=== PATIENT | female | born 1960 | race African-American/Black ===

== ENCOUNTER → 2022-12-15 09:16 | Outpatient (BNVA) | payer OTHER, MEDICAID, SELFPAY | PROVIDERS: PCP Internal Medicine; Visit Provider Physician Assistant Surgical ==

== ENCOUNTER → 2023-01-06 09:55 | Outpatient (BNVA) | payer OTHER, MEDICAID, SELFPAY | PROVIDERS: PCP Internal Medicine; Visit Provider Physician Assistant Surgical ==

== ENCOUNTER 2023-01-10 08:11 | Outpatient (REF) | payer OTHER, MEDICAID, SELFPAY ==
--- NOTE | ~2023-01-10 | XR_ITS ---
EXAMINATION: XR CHEST CLINICAL INFORMATION: Obesity COMPARISON: None available. TECHNIQUE: 2 views of the chest were obtained. FINDINGS: No significant abnormality is noted involving the heart, lungs, mediastinum, bony thorax or soft tissues. Mild degenerative changes of the spine. XR/XR chest 2V IMPRESSION: Unremarkable examination.
--- NOTE | 2023-01-10 08:42 | ECG_ITS ---
Test Reason : e66.9 Blood Pressure : / mmHG Vent. Rate : 067 BPM Atrial Rate : 067 BPM P-R Int : 142 ms QRS Dur : 086 ms QT Int : 416 ms P-R-T Axes : 040 -03 020 degrees QTc Int : 439 ms Normal sinus rhythm Normal ECG No previous ECGs available Referred By: Lauren Jay Electronically Signed By:JAK MONAE
[2023-01-10 08:43] LABS: MANUAL DIFF FLAG NO
[2023-01-10 09:04] LABS: Basophils Percent Auto 0.6 % (0-2); Eosinophils Absolute Auto 0.2 X10*3/uL (0.0-0.4); Eosinophils Percent Auto 2.8 % (0-4); Hematocrit 38.3 % (37.0-47.0); Hemoglobin 12.7 g/dl (12.0-16.0); Imm Gran Abs Auto 0.02 X10*3/uL (0.00-0.03); Imm Gran Pct Auto 0.3 % (0.0-0.4); Lymphocytes Absolute Auto 1.7 X10*3/uL (1.2-4.9); Lymphocytes Percent Auto 23.3 % (20-40); Mean Corpuscular HGB Conc 33.2 g/dl (31.0-35.0); Mean Corpuscular Hemoglobin 27.4 pg (27.0-33.0); Mean Corpuscular Volume 82.5 fL (80.0-98.0); Mean Platelet Volume 9.7 fL (9.4-12.3); Monocytes Absolute Auto 0.4 X10*3/uL (0.1-1.2); Neutrophils Absolute Auto 4.8 x10*3/uL (2.0-8.3); Platelet Count 305 X10*3/uL (160-400); Red Blood Count 4.64 X10*6/uL (4.20-5.50); White Blood Count 7.1 X10*3/uL (4.8-10.8)
[2023-01-10 09:31] LABS: Estimated Average Glucose 134 mg/dL; Hemoglobin A1c % 6.3 %
[2023-01-10 09:43] LABS: Alanine Aminotransferase 25 U/L (0-31); Albumin Level 4.4 g/dL (3.5-5.0); Alkaline Phosphatase 104 U/L (39-117); Anion Gap 13 (12-20); Aspartate Amino Transferase 30 U/L (5-31); Bilirubin Total 1.5 mg/dL (0.0-1.0); Blood Urea Nitrogen 9 mg/dL (9-16); C Reactive Protein 1.26 mg/dL (< or = 0.50); Calcium 9.9 mg/dL (8.4-10.2); Carbon Dioxide 24 mmol/L (22-29); Chloride 107 mmol/L (96-108); Cholesterol 181 mg/dL; Estimated Glomerular Filt Rate > 60; Glucose Random 116 mg/dL (60-115); HDL Cholesterol 50 mg/dL; Iron 77 mcg/dL (30-160); LDL Cholesterol Calculated 119 mg/dl; Percent Iron Saturation 28 % (15-50); Potassium 3.7 mmol/L (3.3-5.1); Sodium 140 mmol/L (135-145); Total Iron Binding Capacity 279 mcg/dL (228-428); Total Protein 8.3 g/dL (6.5-8.0); Triglycerides 63 mg/dL; Unsaturated Iron Binding 202 ug/dL
[2023-01-10 10:05] LABS: Ferritin 120 ng/mL (10-250); Insulin 14 uU/mL (2-29); TSH reflex Free T4 2.51 uIU/mL (0.32-4.0); Vitamin D 25-OH Total 36.8 ng/mL (>30)
[2023-01-10 10:10] LABS: Folate 16.6 ng/mL (> or = 4.0); Vitamin B12 477 pg/mL (200-900)
[2023-01-12 13:19] LABS: Calcium (PTHI) 9.2 mg/dL (8.6-10.4); PTHI 36 pg/mL (16-77)
[2023-01-15 02:49] LABS: Zinc 79 mcg/dL (60-130)
[2023-01-17 21:24] LABS: Vitamin A 38 mcg/dL (38-98)
[2023-01-18 11:04] LABS: Vitamin B1 8 nmol/L (8-30)
== END 2023-01-10 08:12 | disposition home or self-care (01) ==
LOC: HO.LAB 08:11
PROVIDERS: PCP Internal Medicine; Visit Provider Physician Assistant Surgical
DX: E66.9 Obesity, unspecified (principal); E63.9 Nutritional deficiency, unspecified
CPT/HCPCS: 36415; 71046; 80053; 80061; 82306; 82607; 82728; 82746; 83036; 83525; 83540; 83970; 84425; 84443; 84590; 84630; 85025; 86140; 93005

== ENCOUNTER → 2023-01-26 08:50 | Outpatient (BNVA) | payer OTHER, MEDICAID, SELFPAY | PROVIDERS: PCP Internal Medicine; Visit Provider Dietitian, Registered | DX: E66.9 Obesity, unspecified (principal); E11.9 Type 2 diabetes mellitus without complications; Z71.3 Dietary counseling and surveillance | CPT/HCPCS: 97802 ==

== ENCOUNTER 2023-02-06 07:57 | Outpatient (AMB) | payer OTHER, SELFPAY ==
--- NOTE | 2023-02-06 08:42 | MHC.WMTHER ---
Intake Intake Visit Reasons: (OV) BH Intake Allergies clindamycin Allergy (Mild, Verified 01/26/23 09:55) Hives Latex, Natural Rubber Allergy (Mild, Verified 01/26/23 09:55) Hives methadone Allergy (Mild, Verified 01/26/23 09:55) Hives Opioids - Morphine Analogues Allergy (Mild, Verified 01/26/23 09:55) Hives PFSH Surgical History Hx of section Family History Mother Diabetes Father Diabetes Heart attack Son No problems noted. Son No problems noted. Social History Alcohol intake: never Patient Tobacco Use Status: Former Tobacco user Behavioral Health Assessment Weight Management Therapy Therapy Notes Details Pt is looking to have weight loss surgery to help improve her health and quality of life, improve her diabetes as well. She stated that at age 32, she fell off the ladder at work which changed her whole life. Pt stated that she never worked another day after that. She denied ever being in therapy or serious mental health issues. Pt did report some OCD . Presenting Concerns Referral Source provider Reason for referral weight loss surgery evaluation Precipitating Event obesity Living Situation Current Living Situation Rent Satisfied with current living situation? Yes Comments Pt lives together with her adult son. Food/Weight/Diet Expectations of change weight loss and maintenance History/Relationship with food Pt stated that she loves to eat and loves to cook. Employment Meaningful activities walking, building legos, watching nature Assessment & Plan Assessment & Plan (1) Adjustment disorder, unspecified: Code(s): F43.20 - Adjustment disorder, unspecified (2) Obesity: Code(s): E66.9 - Obesity, unspecified Plan Patient will be seen again, evaluation was not completed. Patient was somewhat religiously preoccupied and unclear if there is some paranoia. Pt is motivated and will be seen again. Coding Level of Care Code Tyree Gan ([id number]) Diagnoses Adjustment disorder, unspecified F43.20 Obesity E66.9 Time Spent (min) 45
== END 2023-02-06 14:13 | disposition home or self-care (01) ==
PROVIDERS: PCP Internal Medicine; Visit Provider Counselor Mental Health
DX: F43.20 Adjustment disorder, unspecified (principal); E66.9 Obesity, unspecified
CPT/HCPCS: 90791

== ENCOUNTER → 2023-02-06 07:57 | Outpatient (BNVA) | payer OTHER, MEDICAID, SELFPAY | PROVIDERS: PCP Internal Medicine; Visit Provider Counselor Mental Health ==

== ENCOUNTER 2023-02-20 09:24 | Outpatient (AMB) | payer OTHER, SELFPAY ==
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
== END 2023-02-20 13:01 | disposition home or self-care (01) ==
PROVIDERS: PCP Internal Medicine; Visit Provider Counselor Mental Health
DX: F43.20 Adjustment disorder, unspecified (principal); E66.9 Obesity, unspecified
CPT/HCPCS: 90837

== ENCOUNTER → 2023-02-20 09:24 | Outpatient (BNVA) | payer OTHER, MEDICAID, SELFPAY | PROVIDERS: PCP Internal Medicine; Visit Provider Counselor Mental Health ==

== ENCOUNTER 2023-02-28 10:54 | Outpatient (AMB) | payer OTHER, MEDICAID, SELFPAY ==
--- NOTE | 2023-02-28 11:15 | A.OFFVIS_ITS ---
Intake VS Expanded 02/28/23 11:32 Height 5 ft Weight 177 lb 12.8 oz BMI 34.7 BP 130/63 Blood Pressure Location Rt brachial Blood Pressure Position Sitting Pulse 68 Pulse Source Pulse Oximeter Temp 97.7 F Temperature Source Temporal Artery Scan Pulse Oximetry 95 Oxygen Delivery Method Room Air Intake Visit Reasons: (OV) F/U SWL + H Pylori Allergies clindamycin Allergy (Mild, Verified 01/26/23 09:55) Hives Latex, Natural Rubber Allergy (Mild, Verified 01/26/23 09:55) Hives methadone Allergy (Mild, Verified 01/26/23 09:55) Hives Opioids - Morphine Analogues Allergy (Mild, Verified 01/26/23 09:55) Hives Medication List - Last Reconciled 02/28/23 by HANY Moreau albuterol sulfate 90 mcg/actuation 2 inhalations inhalation Q6H PRN atorvastatin 20 mg PO BEDTIME bisacodyl 5 mg PO BEDTIME flash glucose scanning reader (Stronghold TechnologyStyle Vin 2 [place]) As directed flash glucose sensor (FreeStyle Vin 2 Sensor kit) As directed gabapentin (Neurontin) 300 mg PO TID ibuprofen 600 mg PO Q8H PRN insulin aspart U-100 (Novolog FlexPen U-100 Insulin aspart) 1 sliding scale dose subcut USEASDIRECTD insulin glargine (Basaglar KwikPen U-100 Insulin) 18 units subcut QPM HPI HPI Comments History of Present Illness Details The patient is a pleasant 62 year old female who returns to the clinic for pre-operative surgical weight loss management.? They were last seen in the office on 01/06/2023, recorded weight at that time was 187.4 pounds, with a BMI of 36.6.? Today's weight is 177.8 pounds and BMI is 34.7.? There has been a weight loss of 9.4 pounds since initiating the surgical weight loss program on 01/06/2023 with a total body weight loss of 5.12 %. Pre op work up completed as follows: SWL classes:? 02/28 BH appts: cleared 02/20?? RD appts: 01/26, f/u scheduled 03/07 Labs: 01/10/2023- A1C 6.3, elevated bili/CRP/total protein H. pylori: had a cough drop today so unable to perform; can perform next time CXR: 01/10/2023, unremarkable exam EK01/10/2023, NSR ABD U/S: scheduled 04/03 UGI: scheduled 04/03 Pt reports she was doing well with the plan and exercise, but recently has experienced neuropathy. Had gone down to 165lbs, but once she had increased pain gained weight back. Current meal plan includes: Premier Protein shake- 1 scoop in 8oz unsweetened almond milk each at 8am-10am and 12pm-2pm Pure Protein protein bars- HALF bar at 3pm-4pm and FULL bar at 7pm-9pm Dinner at 5pm- 5 forks of protein and 5 forks of salad/vegetables During visit with RD given option for two shakes, 1.5 pure protein bars; does not like this brand of bar anymore wakes at 5-6am, bedtime 1am does not want to use solid food anymore, wants to use just bars and shakes Current exercise plan includes: bedridden due to neuropathy; has had to take ibuprofen frequently PFSH Surgical History Hx of section Family History Mother Diabetes Father Diabetes Heart attack Son No problems noted. Son No problems noted. Social History Alcohol intake: never Patient Tobacco Use Status: Former Tobacco user Physical Exam Vital Signs: Last Vital Signs Temp 97.7 F 02/28/23 11:32 Pulse 68 02/28/23 11:32 BP 130/63 02/28/23 11:32 Pulse Ox 95 02/28/23 11:32 Oxygen Delivery Method Room Air 02/28/23 11:32 BMI result Body Mass Index 34.7 Assessment & Plan Assessment & Plan (1) Obesity: Code(s): E66.9 - Obesity, unspecified (2) High cholesterol: Code(s): E78.00 - Pure hypercholesterolemia, unspecified (3) Type 2 diabetes mellitus: Code(s): E11.9 - Type 2 diabetes mellitus without complications (4) RSD (reflex sympathetic dystrophy): Code(s): G90.50 - Complex regional pain syndrome I, unspecified (5) Cataract: Code(s): H26.9 - Unspecified cataract (6) Adjustment disorder, unspecified: Code(s): F43.20 - Adjustment disorder, unspecified Plan New plan: 8-10am Premier shake, 1 scoop in 8oz UAM 12-2pm ONE or Quest bar 4-6pm same shake 8-10pm bar Next visit will perform H. pylori test. We also discussed today that after surgery she should aim to stop her ibuprofen use. Encouraged her to discuss with her doctors to find another method of pain control. RTC 2-3 weeks for initial visit with Dr. Page, then next available visit with me once all her preop testing is complete. Patient is obese and is not considered stable at this time. I spent a total of 30 minutes reviewing/updating records, examining the patient and counseling the patient on weight management as detailed above. Coding Level of Care Code Est Pt Level 4 (65556) Diagnoses Obesity E66.9 High cholesterol E78.00 Type 2 diabetes mellitus E11.9 RSD (reflex sympathetic dystrophy) G90.50 Cataract H26.9 Adjustment disorder, unspecified F43.20
[2023-02-28 11:32] VITALS: BP 130/63; PULSE 68; TEMP 36.5; O2SAT 95; BMI 34.7
== END 2023-02-28 12:09 | disposition home or self-care (01) ==
PROVIDERS: PCP Internal Medicine; Visit Provider Physician Assistant Surgical
DX: E66.9 Obesity, unspecified (principal); E78.00 Pure hypercholesterolemia, unspecified; E11.9 Type 2 diabetes mellitus without complications; G90.50 Complex regional pain syndrome I, unspecified; H26.9 Unspecified cataract; F43.20 Adjustment disorder, unspecified
CPT/HCPCS: 99214

== ENCOUNTER → 2023-02-28 10:54 | Outpatient (BNVA) | payer OTHER, MEDICAID, SELFPAY | PROVIDERS: PCP Internal Medicine; Visit Provider Physician Assistant Surgical ==

== ENCOUNTER 2023-03-07 08:43 | Outpatient (AMB) | payer OTHER, MEDICAID, SELFPAY ==
--- NOTE | 2023-03-07 09:09 | A.OFFVIS_ITS ---
Intake Intake Visit Reasons: (OV) F/U SWL Inspector Weights And Measures Required: No Allergies clindamycin Allergy (Mild, Verified 01/26/23 09:55) Hives Latex, Natural Rubber Allergy (Mild, Verified 01/26/23 09:55) Hives methadone Allergy (Mild, Verified 01/26/23 09:55) Hives Opioids - Morphine Analogues Allergy (Mild, Verified 01/26/23 09:55) Hives HPI Nutrition Presentation Reason for consult elevated BMI Diet Assmnt Details 1.5 Pure protein bars and 1 shake (each 1 scoop powder with almond milk) Beets, cauliflower, tomatoes, bok ruthie, any type of greens - no protein, doesn't like meat very much Was having some low blood sugars, was able to decrease her insulin meds Pt shares she is very all or nothing - has never learned balance with nutrition or many other things. We discussed how important it is to continue to work on this. Also has a one track mind , cant focus on multiple things. Had a few bad days and wanted to quit. Patient shares her ultrasonic welding machine operator advised her to increase her carbohydrate intake. However patient feels better following a low carb diet. Patient has been trying to educate herself about the food industry, she has a lot of concerns today which we talked through. Pt shares she is very spiritual which helps her maintain positively in her life. Dietary counseling reduction Diagnosis Nutrition problem #1 overweight/obesity As related to (etiology) #1 excess energy intake and physical inactivity As evidenced by (sign/symptom) #1 high BMI Monitoring/Goals Nutrition problem monitoring total energy intake, level of knowledge/skill, total PRO intake, total CHO intake and weight Outcome progress progressing Learning/Education Readiness to learn good Stages of change action Educational materials provided Yes Most Recent Diabetes Results: Cholesterol 181 mg/dL 01/10/23 HDL Cholesterol 50 mg/dL 01/10/23 Triglycerides 63 mg/dL 01/10/23 Creatinine 0.84 mg/dL (0.5-1.4) 01/10/23 Blood Urea Nitrogen 9 mg/dL (9-16) 01/10/23 Sodium 140 mmol/L (135-145) 01/10/23 Potassium 3.7 mmol/L (3.3-5.1) 01/10/23 Chloride 107 mmol/L (96-108) 01/10/23 Carbon Dioxide 24 mmol/L (22-29) 01/10/23 Calcium 9.9 mg/dL (8.4-10.2) 01/10/23 AST 30 U/L (5-31) 01/10/23 ALT 25 U/L (0-31) 01/10/23 Total Protein 8.3 g/dL (6.5-8.0) H 01/10/23 Albumin 4.4 g/dL (3.5-5.0) 01/10/23 PFSH Surgical History Hx of section Family History Mother Diabetes Father Diabetes Heart attack Son No problems noted. Son No problems noted. Social History Alcohol intake: never Patient Tobacco Use Status: Former Tobacco user Assessment & Plan Assessment & Plan (1) Type 2 diabetes mellitus: Code(s): E11.9 - Type 2 diabetes mellitus without complications (2) Obesity (BMI 30-39.9): Code(s): E66.9 - Obesity, unspecified Patient Instructions: Patient is cleared from a nutrition standpoint for bariatric surgery. Educat ional requirements have been completed. Reviewed vitamin supplementation and commitment to protein shake for several months post surgery. Encouraged communication with office as needed Coding Level of Care Code Nutr Indiv Subseq ([id number]) Diagnoses Type 2 diabetes mellitus E11.9 Obesity (BMI 30-39.9) E66.9 Time Spent (min) 30
== END 2023-03-07 10:09 | disposition home or self-care (01) ==
PROVIDERS: PCP Internal Medicine; Visit Provider Dietitian, Registered
DX: E11.9 Type 2 diabetes mellitus without complications (principal); E66.9 Obesity, unspecified

== ENCOUNTER → 2023-03-07 08:43 | Outpatient (BNVA) | payer OTHER, MEDICAID, SELFPAY | PROVIDERS: PCP Internal Medicine; Visit Provider Dietitian, Registered | DX: E66.9 Obesity, unspecified (principal); E11.9 Type 2 diabetes mellitus without complications; Z71.3 Dietary counseling and surveillance | CPT/HCPCS: 97803 ==

== ENCOUNTER 2023-03-07 17:58 | Outpatient (REF) | payer OTHER, MEDICAID, SELFPAY ==
[2023-03-10 16:43] LABS: H Pylori Breath Test Negative (Negative)
== END 2023-03-07 17:59 | disposition home or self-care (01) ==
LOC: HO.LNP 17:58
PROVIDERS: Visit Provider Physician Assistant Surgical
DX: E66.9 Obesity, unspecified (principal); E11.9 Type 2 diabetes mellitus without complications
CPT/HCPCS: 83013

== ENCOUNTER 2023-03-21 08:59 | Outpatient (AMB) | payer OTHER, MEDICAID, SELFPAY ==
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
[2023-03-21 09:06] VITALS: BP 133/68; PULSE 74; TEMP 36.3; O2SAT 97; BMI 34.5
== END 2023-03-21 09:46 | disposition home or self-care (01) ==
PROVIDERS: PCP Internal Medicine; Visit Provider Surgery
DX: E66.9 Obesity, unspecified (principal); E78.00 Pure hypercholesterolemia, unspecified; E11.9 Type 2 diabetes mellitus without complications; F43.20 Adjustment disorder, unspecified; G90.50 Complex regional pain syndrome I, unspecified; Z99.89 Dependence on other enabling machines and devices
CPT/HCPCS: 99214

== ENCOUNTER → 2023-03-21 08:59 | Outpatient (BNVA) | payer OTHER, MEDICAID, SELFPAY | PROVIDERS: PCP Internal Medicine; Visit Provider Surgery ==

== ENCOUNTER 2023-04-03 07:51 | Outpatient (REF) | payer OTHER, MEDICAID, SELFPAY ==
--- NOTE | ~2023-04-03 | US_ITS ---
EXAMINATION: US COMPLETE ABDOMEN WITH LIVER ELASTOGRAPHY CLINICAL INFORMATION: Obesity. COMPARISON: None available. TECHNIQUE: Real-time imaging of the abdominal viscera. Noninvasive ultrasound liver fibrosis assessment is performed using Marc ElastPQ point quantification shear wave elastography (2D-SWE) with a C5-2 MHz transducer. Multiple elastography samples are obtained. FINDINGS: PANCREAS: Normal. The visualized pancreatic head and body are normal in appearance. The remainder of the pancreas is obscured from visualization by the overlying bowel gas. ABDOMINAL AORTA: The proximal, middle, and distal aortic segments are normal in caliber. INFERIOR VENA CAVA: Visualized portions are normal. LIVER: The liver demonstrates normal size, contour and slightly increased echogenicity. Within the right hepatic lobe, a 5.0 x 5.3 x 4.5 cm hyperechoic, circumscribed mass is seen, with central hypoechoic focus, possibly a central scar. No focal lesion or intrahepatic biliary duct dilatation. The right lobe measures 15.4 cm in length. The left lobe measures 9.6 cm in length. Portal flow is towards the liver (hepatopetal). Shear wave liver elastography median stiffness is 1.84 m/s (reference: normal median stiffness is 1.3 m/s or less). IQR/median stiffness to assess sampling precision is 0.06 (reference: good quality data set is IQR/median stiffness of 0.15 or less). GALLBLADDER: There are multiple gallstones, the largest measuring 1.9 cm. No sludge, polyps, wall thickening or pericholecystic fluid is seen. COMMON BILE DUCT: Normal in caliber measuring 0.3 cm in diameter. RIGHT KIDNEY: Normal. No hydronephrosis. No renal calculi or focal parenchymal lesions. The kidney measures 10.8 cm in maximum dimension. LEFT KIDNEY: Normal. No hydronephrosis. No renal calculi or focal parenchymal lesions. The kidney measures 9.7 cm in maximum dimension. SPLEEN: Normal. The spleen measures 11.0 cm in maximum dimension. FREE FLUID: None. US/US abdomen comp w elastography IMPRESSION: 1. There is generalized increase in hepatic echotexture, consistent with fatty infiltration or hepatocellular disease. Please correlate clinically. No intrahepatic biliary dilatation is seen. 2. A 5.3 cm right hepatic lobe hyperechoic lesion is seen with central hypoechoic focus. The possibility of a hemangioma is raised. If clinically indicated, this could be further with dynamic CT or MRI. 3. Liver elastography: Measurements are suggestive of compensated advanced chronic liver disease but need further test for confirmation. 4. There is cholelithiasis. REFERENCE: Society of Radiologists in Ultrasound Liver Stiffness Thresholds (2020): LIVER STIFFNESS THRESHOLDS: *Liver Stiffness equal or less than 1.3 m/s: High probability of being normal. *Liver Stiffness less than 1.7 m/s: In the absence of other known clinical signs, rules out compensated advanced chronic liver disease. *Liver Stiffness 1.7-2.1 m/s: Suggestive of compensated advanced chronic liver disease but need further test for confirmation. *Liver Stiffness over 2.1 m/s: Rules in compensated advanced chronic liver disease. *Liver Stiffness over 2.4 m/s: Suggestive of clinically significant portal hypertension. QUALITY OF DATA SET: *IQR/Median value equal or less than 0.15 implies a quality data set. *IQR/Median value over 0.15 implies a poor quality data set. SIGNIFICANT CHANGE FROM PRIOR EXAM: Significant change if liver stiffness measurement is 10% or greater from prior exam. OTHER CONSIDERATIONS: The stage of liver fibrosis may be overestimated in the setting of acute hepatitis, liver inflammation, elevated liver function tests, hepatic vascular congestion, obstructive cholestasis, non-fasting state, and infiltrative diseases such as amyloidosis and lymphoma. In some patients with NAFLD, the liver stiffness thresholds for compensated advanced chronic liver disease may be lower. In causes other than viral hepatitis and NAFLD, liver stiffness thresholds are not well established.
--- NOTE | ~2023-04-03 | FL_ITS ---
EXAMINATION: XR FLUOROSCOPY UPPER GI WITH AIR CLINICAL INFORMATION: Obesity COMPARISON: None available. TECHNIQUE: Routine upper GI air-contrast study was performed in upright and lying position. FINDINGS: Following oral administration of thick barium and effervescent granules is normal perfusion of bolus from the oral cavity through the pharynx, esophagus into stomach without any evidence of obstruction, narrowing or stricture. On placing patient supine and prone lying the course, caliber and peristalsis of the stomach appears normal. The mucosal pattern of the esophagus, stomach and the duodenum is normal. FLUOROSCOPY TIME: Immediate DOSE AREA PRODUCT: 71.9 uGy-m2 (microgray-meter squared) FL/FL upper GI w air IMPRESSION: Unremarkable barium swallow examination.
== END 2023-04-03 07:52 | disposition home or self-care (01) ==
LOC: HO.US 07:51
PROVIDERS: PCP Internal Medicine; Visit Provider Physician Assistant Surgical
DX: E66.9 Obesity, unspecified (principal); K76.9 Liver disease, unspecified; K80.20 Calculus of gallbladder without cholecystitis without obstruction
CPT/HCPCS: 74246; 76705; 76981

== ENCOUNTER → 2023-04-03 07:52 | Outpatient (BNV) | payer OTHER, MEDICAID, SELFPAY | PROVIDERS: PCP Internal Medicine; Visit Provider Radiology Diagnostic Radiology | DX: Z01.818 Encounter for other preprocedural examination (principal) | CPT/HCPCS: 74246 ==

== ENCOUNTER 2023-04-25 10:16 | Outpatient (AMB) | payer OTHER, MEDICAID, SELFPAY ==
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
[2023-04-25 10:42] VITALS: BP 135/61; PULSE 68; TEMP 36.2; O2SAT 99; BMI 33.8
== END 2023-04-25 11:54 | disposition home or self-care (01) ==
PROVIDERS: PCP Internal Medicine; Visit Provider Physician Assistant Surgical
DX: E66.9 Obesity, unspecified (principal); E78.00 Pure hypercholesterolemia, unspecified; E11.9 Type 2 diabetes mellitus without complications; F43.20 Adjustment disorder, unspecified
CPT/HCPCS: 99214

== ENCOUNTER → 2023-04-25 10:16 | Outpatient (BNVA) | payer OTHER, MEDICAID, SELFPAY | PROVIDERS: PCP Internal Medicine; Visit Provider Physician Assistant Surgical ==

== ENCOUNTER 2023-05-03 11:15 | Outpatient (AMB) | payer OTHER, SELFPAY ==
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
== END 2023-05-04 13:04 | disposition home or self-care (01) ==
LOC: HO.HBST 11:15
PROVIDERS: PCP Internal Medicine; Visit Provider Counselor Mental Health
DX: F43.20 Adjustment disorder, unspecified (principal); E66.9 Obesity, unspecified
CPT/HCPCS: 90834

== ENCOUNTER → 2023-05-03 11:15 | Outpatient (BNVA) | payer OTHER, MEDICAID, SELFPAY | PROVIDERS: PCP Internal Medicine; Visit Provider Counselor Mental Health ==

== ENCOUNTER 2023-05-22 09:27 | Outpatient (AMB) | payer OTHER, SELFPAY ==
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
== END 2023-05-22 10:43 | disposition home or self-care (01) ==
PROVIDERS: PCP Internal Medicine; Visit Provider Counselor Mental Health
DX: F43.20 Adjustment disorder, unspecified (principal); E66.9 Obesity, unspecified
CPT/HCPCS: 90837

== ENCOUNTER → 2023-05-22 09:27 | Outpatient (BNVA) | payer OTHER, MEDICAID, SELFPAY | PROVIDERS: PCP Internal Medicine; Visit Provider Counselor Mental Health ==

== ENCOUNTER 2023-07-12 10:20 | Outpatient (AMB) | payer OTHER, SELFPAY ==
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
== END 2023-07-12 11:43 | disposition home or self-care (01) ==
PROVIDERS: PCP Internal Medicine; Visit Provider Counselor Mental Health
DX: F43.20 Adjustment disorder, unspecified (principal); E66.9 Obesity, unspecified
CPT/HCPCS: 90834

== ENCOUNTER → 2023-07-12 10:20 | Outpatient (BNVA) | payer OTHER, MEDICAID, SELFPAY | PROVIDERS: PCP Internal Medicine; Visit Provider Counselor Mental Health ==

== ENCOUNTER 2023-07-31 09:57 | Outpatient (AMB) | payer OTHER, MEDICAID, SELFPAY ==
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
== END 2023-07-31 12:56 | disposition home or self-care (01) ==
LOC: HO.HBST 09:57
PROVIDERS: PCP Internal Medicine; Visit Provider Counselor Mental Health
DX: F43.20 Adjustment disorder, unspecified (principal); E66.9 Obesity, unspecified
CPT/HCPCS: 90832

== ENCOUNTER → 2023-07-31 09:57 | Outpatient (BNVA) | payer OTHER, MEDICAID, SELFPAY | PROVIDERS: PCP Internal Medicine; Visit Provider Counselor Mental Health ==

== ENCOUNTER 2025-05-30 08:41 | Outpatient (AMB) | payer OTHER, SELFPAY ==
[2025-05-30 08:47] VITALS: BP 128/86; PULSE 78; RESP 18; TEMP 36.3; O2SAT 97; BMI 34.4
--- NOTE | 2025-05-30 08:47 | A.OFFPC_ITS ---
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 Accompanied by: Self / Same As Patient Allergies clindamycin Allergy (Mild, Verified 05/30/25 08:52) Hives Latex, Natural Rubber Allergy (Mild, Verified 05/30/25 08:52) Hives methadone Allergy (Mild, Verified 05/30/25 08:52) Hives Opioids - Morphine Analogues Allergy (Mild, Verified 05/30/25 08:52) Hives Medication List - Last Reconciled 05/30/25 by Brian Mauro MD flash glucose scanning reader (FreeStyle Vin 2 Fortuna) As directed flash glucose sensor (FreeStyle Vin 2 Sensor kit) As directed semaglutide (Ozempic) 0.25 mg subcut QWEEK Tobacco use date assessed: 05/30/25 Fall risk assessment: 1 Fall in past year Last assessed Fall Risk: 05/30/25 Dental Screening Dental Screen Date: 05/30/25 Did you have a dental visit in the last 12 months?: Yes Did you have a dental problem in the last 6 months where you did not have access to dental care?: No Was dental information given to patient?: Patient has dentist HPI HPI Comments History of Present Illness Details 64 yo F with PMH of DM, HLD, allergy who is presenting to [facility]. The patient does not have any specific concerns and she would like to discuss her health in general. She reports that she has not been taking any of her medications lately because she is worried about side effects and confusing information from multiple providers. The patient was advised on the importance of taking her medications in addition to lifestyle modifications including diet and exercise. The patient requested that our conversation will be honest and educational to her to learn about her health and the treatment plans. I agreed with the patient about the importance of honesty and her education to learn about any treatment plan. She agreed to the plan. We will make sure the patient's concerns are addressed as much as possible. [facility] Surgical History Hx of section Family History Mother Diabetes Father Diabetes Heart attack Son No problems noted. Son No problems noted. Social History Alcohol intake: never Patient Tobacco Use Status: Former Tobacco user e-Cigarette/Vaping Use: Never Used Current occupational status: disabled Cognitive needs: Yes Hearing needs: No Vision needs: Yes Questionnaire PHQ-9 Over the last 2 weeks, how often have you been bothered by any of the following problems? 1. Little interest or pleasure in doing things: not at all 2. Feeling down, depressed, or hopeless: not at all 3. Trouble falling or staying asleep, or sleeping too much: not at all 4. Feeling tired or having little energy: not at all 5. Poor appetite or overeating: not at all 6. Feeling bad about yourself - or that you are a failure or have let yourself or your family down: not at all 7. Trouble concentrating on things, such as reading the newspaper or watching television: not at all 8. Moving or speaking so slowly that other people could have noticed. Or the opposite - being so fidgety or restless that you have been moving around a lot more than usual: several days 9. Thoughts that you would be better off or of hurting yourself in some way: not at all Total score: 1 Source: Developed by Drs. Ricardo Bronson, Avis Chambers, Kvng Patricia and colleagues, with an educational martínez from [employer]. Thrive Questionnaire Date Thrive assessed: 05/30/25 I am a: Patient What is your living situation today?: I have a steady place to live Within the past 12 months, did the food you bought not last and you didn't have the money to get more?: Never true Within the past 12 months, did you worry whether your food would run out before you got money to buy more?: Never true Do you have trouble paying for medicines?: No Do you have trouble getting transportation to medical appointments?: No Do you have trouble paying your heating and electricity bill?: Yes Do you have trouble taking care of your child, family member or friend?: No Do you have trouble with day-to-day activities such as bathing, preparing meals, shopping, managing finances, etc.?: No Are you currently unemployed and looking for a job?: No Are you interested in more education?: No Please select the resources that you would like help with: None Currently or been in a relationship where the following occur: No concerns reported THRIVE Score: 1 AUDIT C Alcohol Use Questionnaire (AUDIT-C) 1. How often do you have a drink containing alcohol?: Never Total Score: 0 CAROLINA-7 AMB Questionnaire CAROLINA-7 Date CAROLINA - 7 assessed: 05/30/25 Feeling nervous, anxious, or on edge: 0 = Not at all Not being able to stop or control worryin = Not at all Worrying too much about different things: 0 = Not at all Trouble relaxin = Not at all Being so restless that it is hard to sit still: 0 = Not at all Becoming easily annoyed or irritable: 3 = Nearly every day Feeling afraid as if something awful might happen: 0 = Not at all Total CAROLINA-7 score (0-4 normal; 5-9 mild; 10-14 moderate; 15-21 severe): 3 Source: Developed by Drs. Ricardo Bronson, Avis Chambers, Kvng Patricia and colleagues, with an educational martínez from [employer]. Review of Systems Const Details: As per HPI. Physical exam (Primary Care) Vital Signs: Last Vital Signs Temp 97.3 F 05/30/25 08:47 Pulse 78 05/30/25 08:47 Resp 18 05/30/25 08:47 BP 128/86 05/30/25 08:47 Pulse Ox 97 05/30/25 08:47 Oxygen Delivery Method Room Air 05/30/25 08:47 BMI result Body Mass Index 34.4 Tobacco/Smoking Status: Tobacco use Status Tobacco use date assessed 05/30/25 05/30/25 09:07 Patient Tobacco Use Status Former Tobacco user 05/30/25 09:07 e-Cigarette/Vaping Use Never Used 05/30/25 09:07 PHQ-9: PHQ-9 Score PHQ-9: Total score 1 05/30/25 10:24 Thrive Assessment: Date of Thrive Assessment Date Thrive assessed 05/30/25 05/30/25 09:07 Currently or been in a relationship where the following occur: No concerns reported Const Other: Pertinent findings are in BOLD GENERAL APPEARANCE NAD, activity normal for age, well developed/ well nourished, no cyanosis, pallor, or diaphoresis. EYES lids/conjunctiva normal. EARS/NOSE/THROAT Mucous membranes moist, nares normal, lips/teeth normal uvula midline without oral pharyngeal erythema, exudate or swelling TMs normal bilaterally. No lymphangitis/lymphedema. HEAD/NECK normocephalic atraumatic, no facial trauma, neck is supple. RESPIRATORY respiratory effort normal, speaks in full sentences, no tripod position, no accessory muscle use. Lungs clear to auscultation without rhonchi, wheezes, rales CARDIAC Regular rate and rhythm, no edema. ABDOMINAL Soft, ND/NT. No evidence of fluid wave. No pulsatile masses on exam, rebound tenderness, Valencia sign or pain over Mcburney's point. MUSCLES/EXTREMITIES No abnormal range of motion, no swelling. SKIN Warm, pink and dry. No rashes, dermatoses, petechiae or lesions. NEUROLOGICAL Speech is clear and appropriate. Normal level of consciousness. Gait and coordination are normal. 5/5 strength in all extremities. PSYCH Normal mood and affect. Judgement/competence is appropriate Coding Level of Care Code New Pt Level 4 (76424) New Pt Prev Care >65yr (29729) Diagnoses Healthcare maintenance Z00.00 Type 2 diabetes mellitus with diabetic chronic kidney disease, unspecified CKD stage, unspecified whether mcc insulin use E11.22 Chronic kidney disease stage: unspecified stage Diabetes mellitus complication detail: with chronic kidney disease Diabetes mellitus complication status: with kidney complications Diabetes mellitus termite helper insulin use: unspecified mcc insulin use status High cholesterol E78.00 Postmenopausal Z78.0 Smoking F17.200 Chronic kidney disease, unspecified CKD stage N18.9 Chronic kidney disease stage: unspecified stage Time Spent (min) 45 Assessment & Plan Assessment & Plan (1) Healthcare maintenance: Code(s): Z00.00 - Encounter for general adult medical examination without abnormal findings Category: Medical Plan: CBC, CMP, Lipid panel, A1C, TSH w T4, vit D. Orderd today. Shingles 2 doses when >50 yo. Declined. COVID: two doses. Declined. Tdap: Declined. Pneumococcal: >50 yo. 18-49 with CKD, lung disease, weakened immune system, Heart disease, DM, cochlear implant. Declined. Flu vaccine: Declined. Colonoscopy: 45-75. Colonoscopy done in 2023. NExt due in 2033. AAA: 65 -[address]. Orderd[address] CT lun - 80. Not indicated. HIV: Ordered. HCV: ordered. Dexa: Ordered. Mammogram: Patient declined. (2) Type 2 diabetes mellitus: Code(s): E11.9 - Type 2 diabetes mellitus without complications Category: Medical Qualifiers: Chronic kidney disease stage: unspecified stage Diabetes mellitus complication detail: with chronic kidney disease Diabetes mellitus complication status: with kidney complications Diabetes mellitus termite helper insulin use: unspecified termite helper insulin use status Qualified Code(s): E11.22 - Type 2 diabetes mellitus with diabetic chronic kidney disease Plan: Patient is only taking ozempic. We will continue Ozempic. I advised the patient to follow-up with endocrinology for better control of her DM and for education on sugar. She was requesting continuous glucose monitor. I advised the patient to cut out sugar from her life while measuring her blood sugar intermittently to prevent hypoglycemia. I advised the patient that she might not feel the hypoglycemia episodes and she should not rely on symptoms only. We will continue educating the patient on the importance of taking her medications and to follow-up regularly with her doctor to prevent complicaitons of diabetes. (3) High cholesterol: Code(s): E78.00 - Pure hypercholesterolemia, unspecified Category: Medical Plan: Patient was not taking atorvastatin as she was worried about side effects. Education provided to the paitent on the common side effects of statin and the importance of taking her medications. Repeat labs ordered to check for the need of the medication. (4) Postmenopausal: Code(s): Z78.0 - Asymptomatic menopausal state Category: Medical Plan: Dexa scan ordered. (5) Smoking: Code(s): F17.200 - Nicotine dependence, unspecified, uncomplicated Category: Social Hx Plan: AAA ordered today. (6) CKD (chronic kidney disease): Code(s): N18.9 - Chronic kidney disease, unspecified Category: Medical Qualifiers: Chronic kidney disease stage: unspecified stage Qualified Code(s): N18.9 - Chronic kidney disease, unspecified Plan: Nephrology referral. We will repeat kidney function test. I explained to the patient the importance of controlling risk facvtors of kidney disease with medications. Plan I spent 30 minutes discussing with the patient her concerns about taking medications, conflicting opinions from different doctors. I explained to her that although she had side effects with medications in the past we will make sure to discuss treatment options and provide education. I ordered repeat labs to check the patient's lipid level, blood sugar, kidney function and hemoglobin level. The treatment plan will be tailored based on the patient's labs, expectations, and her overall wellbeing. Orders: Orders Complete Blood Count no Diff Today Z00.00 - Encounter for general adult medical examination without abnormal findings Hemoglobin A1c Today Z00.00 - Encounter for general adult medical examination without abnormal findings HIV Ab/Ag Today Z00.00 - Encounter for general adult medical examination without abnormal findings TSH reflex Free T4 Today Z00.00 - Encounter for general adult medical examination without abnormal findings Vitamin B12 and Folate Today D64.9 - Anemia, unspecified, Z00.00 - Encounter for general adult medical examination without abnormal findings US abdominal aortic aneurysm Today F17.200 - Nicotine dependence, unspecified, uncomplicated XR DEXA axial skeleton Today Z78.0 - Asymptomatic menopausal state Comprehensive Met. Panel Today Z00.00 - Encounter for general adult medical examination without abnormal findings Hepatitis C Antibody Reflex Today Z00.00 - Encounter for general adult medical examination without abnormal findings Lipid Panel Today Z00.00 - Encounter for general adult medical examination without abnormal findings Vitamin D 25-OH Total Today Z00.00 - Encounter for general adult medical examination without abnormal findings Referrals Nephrology Referral Z00.00 - Encounter for general adult medical examination without abnormal findings Behavioral Health Referral F41.9 - Anxiety disorder, unspecified, F43.20 - Adjustment disorder, unspecified Endocrinology Referral E11.9 - Type 2 diabetes mellitus without complications
--- OUTSIDE RECORDS SUMMARY | 2025-05-30 09:19 | XMS_ITS ---
Author Name [facility] Organization Unknown Care Team Organization Name Specialty Phone Email Start Date End Da te [facility] Frank Hernandez Primary Care 05/31/2022 03/11/20 24
--- OUTSIDE RECORDS SUMMARY | 2025-05-30 09:19 | XMS_ITS | Encounter Summary ---
Author Organization [facility] Address [address] [place] [address] Care Team Providers Care Sculpture Instructor Name Role Phone Frank Hernandez MD Primary Care Provider [phone] Encounter Details Date Type Department Care Team (Late Contact Info) Description 04/24/2025 Results Follow-Up [address] [phone] Akash Soriano MD [address] [place] [id number] Social History Tobacco Use Types Packs/Day Years Used Date Smoking Tobacco: Former Cigarettes 0.5 13.5 0 07/24/1977 - 01/21/1991 Smokeless Tobacco: Never Alcohol Use Standard Drinks/Week Comments No 0 (1 standard drink = 0.6 oz pur e alcohol) Comments No Sex and Gender Information Value Date Recorded Sex Assigned at Not on file Legal Sex Female 10:13 AM EST Gender Identity Not on file Sexual Orientation Not on file documented as of this encounter Plan of Treatment Upcoming Encounters Date Type Department Care Team (Late st Contact Info) Description 07/30/2025 8:45 AM EST Office Visit Endocrinology [facility] [address] [place], [place] [phone] Antonette Rincon PA [address], [place] 12/30/2025 8:30 AM EDT Office Visit Pulmonology [facility] [address] [place] [phone] Janna Saenz, RADU [address] [place] [phone] documented as of this encounter Visit Diagnoses Not on filedocumented in this encounter Care Teams Sculpture Instructor Relationship Specialty Start Date End Date Frank Hernandez MD [address] [place] [id number] PCP - General Internal Medicine 01/30/09 documented as of this encounter
--- OUTSIDE RECORDS SUMMARY | 2025-05-30 09:19 | XMS_ITS | Clinical Summary ---
Author Organization [address] Address [address] [place] [phone] Phone Care Team Providers Care Rim Fire Priming Operator Name Role Phone Frank Hernandez MD Primary Care Provider [phone] Allergies Active Allergy Reactions Criticality Noted Date Comments Acqpnjtgawzj-Oos-Jerrcmlhggpue Hives 02/10 Cephalexin Hives High 01/31/2022 Latex Hives 02/10/2009 Methadone 04/20/2017 Morphine 04/20/2017 Hives , itchiness Medications hydrocortisone 2.5 % cream Apply 1 Application topically 2 (two) times a day. 10/25/19 24 Active gabapentin (NEURONTIN) 600 mg tablet Take 1 Tablet by mouth 3 times daily. 10/10/19 24 Active cholecalciferol (VITAMIN D-3) 5,000 Units tablet Take 125 mcg by mouth daily. 10/10/19 24 Active ONETOUCH DELICA LANCETS [facility] Apply 1 Stick topically 2 times daily. E11.29 07/20/20 22 Active blood-glucose meter (BLOOD GLUCOSE MONITORING MISC) E11.29 to check glucose upto 2 times a day 07/20/20 22 Active flash glucose scanning reader (FreeStyle Vin 2 [place]) mis 1 Device by Does not apply route continuous. 01/08/20 22 Active flash glucose sensor (FreeStyle Vin 2 Sensor) kitIndications:Typ e 2 diabetes mellitus with stage 3 chronic kidney disease, with long-term current use of insulin, unspecified whether stage 3a or 3b CKD (CMS/HCC V24, CMS/HCC V28) Use to monitor your blood sugars 6 EA 1 10/29/19 25 Active ibuprofen (ADVIL,MOTRIN) 800 mg tablet TAKE 1 TABLET BY MOUTH EVERY 8 HOURS NEEDED FOR PAIN 270 tablet 11/19/19 25 Active montelukast (SINGULAIR) 10 mg tabletIndications: Moderate persistent asthma without complication Take 1 tablet (10 mg total) by mouth at bedtime. at bedtime. 90 each 3 12/31/19 25 026 Active rosuvastatin (CRESTOR) 20 mg tabletIndications: Hyperlipidemia, unspecified hyperlipidemia type Take 1 tablet (20 mg total) by mouth 1 (one) time each day. 30 each 5 01/07/20 25 025 Active atorvastatin (LIPITOR) 40 mg tablet TAKE 1 TABLET BY MOUTH EVERY DAY 90 tablet 1 01/15/20 25 Active clotrimazole (LOTRIMIN) 1 % cream Apply topically 2 (two) times a day. Apply small amount to affected skin twice a day 45 g 01/22/20 25 Active insulin glargine,hum.rec.a nlog (Basaglar KwikPen U-100 Insulin) 100 unit/mL (3 mL) injection penIndications:Typ e 2 diabetes mellitus with stage 3 chronic kidney disease, with long-term current use of insulin, unspecified whether stage 3a or 3b CKD (CMS/HCC V24, CMS/[facility] V28) Inject 12-16 Units into the skin at bedtime.Strength: 100 unit/mL (3 mL) 15 mL 02/25/20 Active Additional Information Patient not taking.Reported on 04/23/2025 insulin aspart (NovoLOG Flexpen U-100 Insulin) 100 unit/mL (3 mL) injection penIndications:Typ e 2 diabetes mellitus with stage 3 chronic kidney disease, with long-term current use of insulin, unspecified whether stage 3a or 3b CKD (CMS/HCC V24, CMS/[facility] V28) INJECT INTO SKIN 3 TIMES A DAY SLIDING SCALE: <70: 0 UNITS, 71-100: 0 UNITS, 101-150: 6 UNITS, 151-200: 10 UNITS, 201-250: 12 UNITS, 251-300: 14 UNITS, 300-350: 16 UNITS, 351-400: 18 UNITS, >400: 20 UNITS AND CALL ME. 45 mL 02/25/20 Active Additional Information Patient not taking.Reported on 04/23/2025 loratadine (CLARITIN) 10 mg tabletIndications: Moderate persistent asthma without complication TAKE 1 TABLET BY MOUTH 1 TIME EACH DAY. 90 tablet 1 03/27/20 Active Ozempic 0.25 mg or 0.5 mg (2 mg/3 mL) injection penIndications:Typ e 2 diabetes mellitus with stage 3 chronic kidney disease, with long-term current use of insulin, unspecified whether stage 3a or 3b CKD ([facility] V24, [facility] V28) INJECT 0.25 MG SUBCUTANEOUSLY EVERY 7 DAYS 3 mL 5 04/28/20 25 Active Active Problems Problem Noted Date Diagnosed Date DM (diabetes mellitus), type 2 with renal complications ([facility] V24, [facility] V28) 05/14/2021 Nuclear sclerosis of both eyes 12/29/2016 Retinal drusen of both eyes 12/29/2016 Chronic back pain 03/10/2016 Diabetic neuropathy associat ed with type 2 diabetes mellitus ([facility] V24, [facility] V28) 03/10/2016 Microalbuminuria 03/10/2016 Anatomical narrow angle 11/23/2015 Cataracts, bilateral 11/23/2015 COPD (chronic obstructive pu lmonary disease) ([facility] V24, [facility] V28) 11/12/2013 Type 2 diabetes mellitus wit h ophthalmic manifestations ([facility] V24, [facility] V28) 09/28/2013 Hypothyroidism 09/23/2011 Hyperlipidemia 07/22/2010 Asthma 02/10/2009 RSD (reflex sympathetic dystrophy) 02/10/2009 Seasonal allergies 02/10/2009 Encounters Date Type Department Care Team Description 05/22/2025 Telephone [facility] [address] [facility] [place] [place] [phone] Frank Hernandez MD 05/19/2025 Telephone Internal Medicine - [facility] [address] [facility] [place] [phone] Frank Hernandez MD 05/14/2025 Telephone Internal Medicine - [facility] [address] [place] [phone] Frank Hernandez MD 04/24/2025 Results Follow-Up Endocrinology [address] [phone] Akash Soriano MD 04/23/2025 9:30 AM EDT Office Visit Endocrinology - [place] [address] [place], [place] [phone] Akash Soriano MD Type 2 diabetes mellitus with stage 3 chronic kidney disease, with long-term current use of insulin, unspecified whether stage 3a or 3b CKD ([facility] V24, [facility] V28) (Primary Dx) 04/08/2025 [facility] [address] [place] [address] Frank Hernandez MD 04/03/2025 [place] [facility] - [address] [phone] Frank Hernandez MD 04/01/2025 [place] [facility] - [address] [phone] Frank Hernandez MD 02/27/2025 [place] [facility] - [address] [phone] Frank Hernandez MD from Last 3 Months Immunizations Immunization Administration Dates Next Due Pneumococcal polysaccharide 23 valent (Pneumovax 23) 2yo and older 12/27/2013 Td Tetanus diptheria (Tdvax) 7yo and older 03/02,02/10/2009 Surgical History Surgery Date Site/Laterality Comments SECTION PROCEDURE: [place] DELIVERY ONLY; COMMENT: x2 COLONOSCOPY 03/17/2011 PROCEDURE: HISTORICAL COLONOSCOPY; COMMENT: normal; repeat in ten yrs Medical History Medical History Date Comments Hypothyroidism 09/23/2011 DX:Hypothyroidis m COPD (chronic obstructive pu lmonary disease) ([facility] V24, [facility] V28) 11/12/2013 DX:COPD (chronic o bstructive pulmonary disease) ([facility]) Microalbuminuria 03/10/2016 DX:Microalbumin uria Type 2 diabetes mellitus wit h ophthalmic manifestations ([facility] V24, [facility] V28) 09/28/2013 DX:Type 2 diabetes mellitus with ophthalmic manifestations (HCC); COMMENT: NS eye exam 04/10/13. Cataracts, bilateral 11/23/2015 DX:Cataract s, bilateral Type 2 diabetes, controlled, with neuropathy (CMS/HCC V24, CMS/HCC V28) 03/10/2016 DX:Type 2 diabet es, controlled, with neuropathy (HCC) Controlled type 2 diabetes w ith renal manifestation 09/28/2013 DX:Controlled type 2 diabete s with renal manifestation; COMMENT: Microalbumin 40 on 08/08/13. Anatomical narrow angle 11/23/2015 DX:Anato mical narrow angle Asthma 02/10/2009 DX:Asthma Chronic back pain 03/10/2016 DX:Chronic arleth k pain Hyperlipidemia 07/22/2010 DX:Hyperlipidemi a Seasonal allergies 02/10/2009 DX:Seasonal a llergies Family History Medical History Relation Name Comments Cataracts Aunt maternal No Known Problems Brother patient do esnt want anything to do with him Diabetes Father Heart attack Father Diabetes Maternal Grandmother Diabetes Mother Diabetes Paternal Grandmother w/ leg ulcers Cataracts Uncle maternal Breast cancer Neg Hx Glaucoma Neg Hx Macular degeneration Neg Hx Strabismus Neg Hx Relation Name Status Comments Aunt Brother Alive Father Maternal Grandfather Maternal Grandmother Mother Paternal Grandfather Paternal Grandmother Uncle Social History Tobacco Use Types Packs/Day Years Used Date Smoking Tobacco: Former Cigarettes 0.5 13.5 0 07/24/1977 - 01/21/1991 Smokeless Tobacco: Never Tobacco Cessation:Counseling Given: Not Answered Alcohol Use Standard Drinks/Week Comments No 0 (1 standard drink = 0.6 oz pur e alcohol) Comments No Sex and Gender Information Value Date Recorded Sex Assigned at Not on file Legal Sex Female 10:13 AM EST Gender Identity Not on file Sexual Orientation Not on file Obstetrics History Last Filed Vital Signs Vital Sign Reading Time Taken Comments Blood Pressure 139/85 04/23/2025 9:38 AM EDT Pulse 69 04/23/2025 9:38 AM EDT Temperature 36.4 C (97.5 F) 12/30/2024 8:52 AM EDT Respiratory Rate 15 04/23/2025 9:38 AM EDT Oxygen Saturation 95% 12/30/2024 8:52 AM EDT Inhaled Oxygen Concentration - - Weight 79.8 kg (176 lb) 04/23/2025 9:38 AM EDT Height 152.4 cm (5') 04/23/2025 9:38 AM EDT Body Mass Index 34.37 04/23/2025 9:38 AM EDT Plan of Treatment Upcoming Encounters Date Type Department Care Team (Late st Contact Info) Description 07/30/2025 8:45 AM EST Office Visit Endocrinology [facility] [address] [place] [phone] Antonette Rincon PA [address] [place] [address] 12/30/2025 8:30 AM EDT Office Visit Pulmonology - [place] [address] [facility] [address] [place] [phone] Janna Saenz, RAD[facility] [address] [place] [address] Health Maintenance Due Date Last Done Comments COVID-19 Vaccine (#1) 1964 Diabetes: Annual Foot Exam 1969 Zoster Vaccines (1 of 2) 1978 RSV Immunization Adult Patients (1 - Risk 50-74 years 1-dose series) 2009 Pneumococcal Vaccine: 50+ Years (2 of 2 - PCV) 12/27/2014 12/27/2013 Medicare Annual Wellness Visit 07/02/2022 Osteoporosis Screening (Bone Density Screening) 07/02/2022 Social Influencers of Health Screening 07/02/2022 Falls Risk Assessment 2024 Depression Screening 07/24/2024 Diabetes: Annual Urine Albumin-Creatinine Ratio (uACR) 11/06/2024 11/07/2023 Diabetes: Annual Retina Eye Exam 12/19/2024 12/20/2023 Breast Cancer Screening 01/25/2025 01/25/2023 Influenza Vaccine (#1) 2025 Diabetes: Blood Sugar Control Test (HGBA1C) 10/22/2025 04/23/2025, 01/06/2025, 10/28/2024, Additional history exists Diabetes: Annual GFR (Glomerular Filtration Rate) 04/23/2026 04/23/2025, 01/28/2025, 10/28/2024, Additional history exists Cervical Cancer Screening: HPV 12/23/2027 12/22/2022 Cholesterol Screening (Lipid Panel) 01/28/2030 01/28/2025, 07/08/2024, 03/08/2024, Additional history exists DTaP,Tdap,and Td Vaccines (3 - Td or Tdap) 03/02/2033 03/02/2023, 02/10/2009 Colorectal Cancer Screening: Colonoscopy 11/08/2033 11/09/2023 Hepatitis C Screening Completed 12/27/2013 HIB Vaccines Aged Out No longer eligi ble based on patient's age to complete this topic HPV Vaccines Aged Out No longer eligi ble based on patient's age to complete this topic Hepatitis A Vaccines Aged Out No long er eligible based on patient's age to complete this topic Hepatitis B Vaccines Aged Out No long er eligible based on patient's age to complete this topic IPV Vaccines Aged Out No longer eligi ble based on patient's age to complete this topic MMR Vaccines Aged Out No longer eligi ble based on patient's age to complete this topic Meningococcal ACWY Vaccine Aged Out N o longer eligible based on patient's age to complete this topic Meningococcal B Vaccine Aged Out No l onger eligible based on patient's age to complete this topic RSV Immunization Patients Under 20 months Aged Out No longer eligible based on patient's age to complete this topic Varicella Vaccines Aged Out No longer eligible based on patient's age to complete this topic Procedures Procedure Name Priority Date/Time Associated Diagnosis Comments CREATININE, SERUM Routine 04/23/2025 10: 28 AM EDT Type 2 diabetes mellitus with stage 3 chronic kidney disease, with long-term current use of insulin, unspecified whether stage 3a or 3b CKD (CMS/HCC V24, CMS/HCC V28) BUN Routine 04/23/2025 10:28 AM EDT Type 2 diabetes mellitus with stage 3 chronic kidney disease, with long-term current use of insulin, unspecified whether stage 3a or 3b CKD (CMS/HCC V24, CMS/HCC V28) HEMOGLOBIN A1C Routine 04/23/2025 10:28 AM EDT Type 2 diabetes mellitus with stage 3 chronic kidney disease, with long-term current use of insulin, unspecified whether stage 3a or 3b CKD (CMS/HCC V24, [facility] V28) LIPID PANEL WITH REFLEX TO DIRECT LDL Routine 01/28/2025 1:45 PM EDT Hyperlipidemia, unspecified hyperlipidemia type DIABETES EYE EXAM Routine 12/20/2023 COLONOSCOPY Routine 11/09/2023 URINE ALBUMIN CREATININE RATIO Routine 11/07/2023 SCREENING MAMMOGRAPHY BI 2-VIEW BREAST INC CAD Routine 01/25/2023 8:16 AM EDT Encounter for screening mammogram for malignant neoplasm of breast HPV Routine 12/22/2022 HEPATITIS C SCREENING Routine 12/27/2013 from Last 3 Months or Most Recently Relevant to Health Maintenance Results * Creatinine (04/23/2025 10:28 AM EDT) Creatinine 0.82 0.50 - 1.10 mg/dL LAB CHEMISTRY METHOD 04/23/2025 4:01 PM EDT [facility] eGFR 79 >=60 mL/min/1. 73m2 LAB CHEMISTRY METHOD 04/23/2025 4:01 PM EDT [facility] Comment:Calculation based on the Chronic Kidney Disease Epidemiology Collaboration (CKD-EPI) equation refit without adjustment for race. Blood Venous blood specimen / Unknown Venipuncture / Unknown 04/23/2025 10:28 AM EDT 04/23/2025 10:28 AM EDT us Akash Soriano MD LAB BLOOD ORDERABLES Final Resul t [facility] [address] [place] [address], [place] [phone] * BUN (04/23/2025 10:28 AM EDT) BUN 10 5 - 25 mg/dL LAB CHEMISTRY METHOD 04/23/2025 4:01 PM EDT [facility] Blood Venous blood specimen / Unknown Venipuncture / Unknown 04/23/2025 10:28 AM EDT 04/23/2025 10:28 AM EDT us Akash Soriano MD LAB BLOOD ORDERABLES Final Resul t Performing Organization Address [facility] de Phone Number [facility] [address] [place] [address], [place] [phone] * (ABNORMAL) Hemoglobin A1c (04/23/2025 10:28 AM EDT) [facility] Hemoglobin A1C 7.5(H) <6.5 % LAB CHEMISTRY METHOD 04/23/2025 10:25 PM EDT [facility] Mean Bld Glu Estim. 169 mg/dL LAB CHEMISTRY METHOD 04/23/2025 10:25 PM EDT [facility] Blood Venous blood specimen / Unknown Venipuncture / Unknown 04/23/2025 10:28 AM EDT 04/23/2025 10:28 AM EDT us Akash Soriano MD LAB BLOOD ORDERABLES Final Resul t Performing Organization Address City/[facility]/ZIP Co de Phone Number [facility] [address] [place] [address], [place] [phone] * (ABNORMAL) Lipid panel with reflex to direct LDL (01/28/2025 1:45 PM EDT) Pathologist [facility] Cholesterol 228(H) 0 - 200 mg/dL LAB CHEMISTRY METHOD 01/28/2025 7:41 PM EDT [facility] Triglycerides 126 0 - 150 mg/dL LAB CHEMISTRY METHOD 01/28/2025 7:41 PM EDT [facility] HDL 61 >=40 mg/dL LAB CHEMISTRY METHOD 01/28/2025 7:41 PM EDT [facility] LDL Calculated 142(H) 0 - 100 mg/dL LAB CHEMISTRY METHOD 01/28/2025 7:41 PM EDT [facility] VLDL Cholesterol [place] 25.2 mg/dL LAB CHEMISTRY METHOD 01/28/2025 7:41 PM EDT [facility] Non HDL Chol. (LDL+VLDL) 167(H) <145 mg/dL LAB CHEMISTRY METHOD 01/28/2025 7:41 PM EDT [facility] Chol/HDL Ratio 3.7 0.0 - 4.4 LAB CHEMISTRY METHOD 01/28/2025 7:41 PM EDT [facility] Blood Venous blood specimen / Unknown Venipuncture / Unknown 01/28/2025 1:45 PM EDT 01/28/2025 1:45 PM EDT Frank Hernandez MD LAB BLOOD ORDERABLES Final Res ult [facility] [address] [place] [address], * Diabetes Eye Exam (12/20/2023) [facility] Diabetes: Annual Retina Eye Exam abstracted Historical Provider HEALTH MAINTENANCE Final Result * Colonoscopy (11/09/2023) [facility] Colonoscopy no interpretation , abstracted Anatomical Region Laterality Modality Other Historical Provider HEALTH MAINTENANCE Final Result * Urine Albumin Creatinine Ratio (11/07/2023) [facility] Urine Albumin Creatinine Ratio abstracted Historical Provider HEALTH MAINTENANCE Final Result * SCREENING MAMMOGRAPHY BI 2-VIEW BREAST INC CAD (01/25/2023 8:16 AM EDT) Anatomical Region Laterality Modality Radiographic Paige ging 09/22/2022 11:3 2 AM EST Narrative 01/25/2023 10:56 AM EDT This is a summary report. The complete report is available in the patient's medical record. If you cannot access the medical record, please contact the sending organization for a detailed fax or copy. Full field digital screening tomosynthesis mammography, reviewed with CAD and compared to previous mammograms of 12/06/2013 and 09/25/2015. The breasts are composed of fatty and fibroglandular tissue. No suspicious mass, architectural distortion or suspicious calcifications are identified. IMPRESSION: : No mammographic evidence of malignancy. BIRADS 1-Negative; N. 5 year breast cancer risk assessment 1.6 % Lifetime breast cancer risk assessment 6.3 % Breast cancer risk category Low (<15%) Procedure Note Elizabeth Yanes MD - 08/28/2023 This is a summary report. The complete report is available in thepatient's medical record. If you cannot access the medical record, pleasecontact the sending organization for a detailed fax or copy. Full field digital screening tomosynthesis mammography, reviewed with CADand compared to previous mammograms of 12/06/2013 and 09/25/2015. The breastsare composed of fatty and fibroglandular tissue. No suspicious mass,architectural distortion or suspicious calcifications are identified. IMPRESSION: : No mammographic evidence of malignancy. BIRADS 1-Negative; N. 5 year breast cancer risk assessment 1.6 % Lifetime breast cancer risk assessment 6.3 % Breast cancer risk category Low (<15%) Tika Peñaloza NP IMG XR PROCEDURES Phuong l Result * Cervical Cancer Screening: HPV (12/22/2022) Cervical Cancer Screening: HPV negative, abstracted Result [facility] Historical Provider HEALTH MAINTENANCE Final Result * Hepatitis C Screening (12/27/2013) Hepatitis C Screening abstracted Historical Calista MORENO HEALTH MAINTENANCE Final Result from Last 3 Months or Most Recently Relevant to Health Maintenance Insurance [employer] MEDICARE ADVANTAGE MEDICAID - [place] Care Teams Rim Fire Priming Operator Relationship Specialty Start Date End Date Frank Hernandez MD [address] [place] [id number] PCP - General Internal Medicine 01/30/09
--- OUTSIDE RECORDS SUMMARY | 2025-05-30 09:19 | XMS_ITS | Clinical Summary ---
Author Organization [facility] Address [address] [place] [address] Care Team Providers Care Food And Beverage Attendant Name Role Phone Unavailable Primary Care Provider Unavailabl e Source Comments PLEASE NOTE, if this patient is a minor, it may be UNLAWFUL to discuss sensitive information that is contained in these records (such as FAMILY PLANNING, MENTAL HEALTH or SUBSTANCE ABUSE) with the minor patient's parent or other person without the patient's specific authorization.[facility] Allergies No known active allergies Medications albuterol HFA 90 mcg/actuation inhaler 3 Active atorvastatin (LIPITOR) 40 mg tablet 3 Active bisacodyL (DULCOLAX) 5 mg EC tablet TAKE 2 TABLETS BY MOUTH DIRECTED AT 6PM 2 Active furosemide (LASIX) 20 mg tablet TAKE 1 TABLET BY MOUTH 2 TIMES DAILY FOR 4 DAYS. 3 Active NOVOLOG FLEXPEN U-100 INSULIN 100 unit/mL (3 mL) PLEASE SEE ATTACHED FOR DETAILED DIRECTIONS 2 Active BASAGLAR KWIKPEN U-100 INSULIN 100 unit/mL (3 mL) INJECT 10 UNITS INTO THE SKIN AT BEDTIME. 3 Active Active Problems No known active problems Encounters Date Type Department Care Team Description 04/15/2025 9:00 AM EDT Office Visit [facility] [address] [place] [phone] Dominic Shah DDS 03/25/2025 9:00 AM EDT Office Visit [facility] [place] [phone] Dominic Shah DDS from Last 3 Months Social History Tobacco Use Types Packs/Day Years Used Date Smoking Tobacco: Former Cigarettes Passive Smoke Exposure: Never Smokeless Tobacco: Never Tobacco Cessation:Counseling Given: Not Answered Social Connections Answer Date Recorded Connectedness 0 04/10/2024 Financial Resource Strain Answer Date R ecorded Financial Resource Strain 0 2019 Stress Answer Date Recorded Stress 0 06/10/2020 Physical Activity Answer Date Recorded Physical Activity 0 06/10/2020 Food Insecurity Answer Date Recorded Food 0 04/18/2024 Transportation Needs Answer Date Record ed Transportation 0 06/10/2020 Housing Stability Answer Date Recorded Housing 0 06/10/2020 Safety and Environment Answer Date Gal rded Safety 0 06/10/2020 Utilities Answer Date Recorded Utilities 0 06/10/2020 Employment Answer Date Recorded Stress 0 04/10/2024 Comments Unknown Sex and Gender Information Value Date Recorded Sex Assigned at Not on file Legal Sex Female 10:25 AM PST Gender Identity Not on file Sexual Orientation Not on file Last Filed Vital Signs Vital Sign Reading Time Taken Comments Blood Pressure 121/68 12/19/2024 9:43 AM EDT Pulse 70 12/19/2024 9:43 AM EDT Temperature - - Respiratory Rate - - Oxygen Saturation - - Inhaled Oxygen Concentration - - Weight - - Height - - Body Mass Index - - Plan of Treatment Upcoming Encounters Date Type Department Care Team (Late st Contact Info) Description 06/16/2025 11:00 AM EST Office Visit [facility] [address] [place] [phone] Martha Bone [address] [place] [address] Health Maintenance Due Date Last Done Comments Anxiety Screening 1959 Hepatitis C Screening 1959 HIV Screening 1974 Medicare Annual Wellness Visit 1977 Breast Cancer Screening (Mammogram) 1999 CT Colonography 2004 Colonoscopy 2004 Colorectal Cancer Screening 2004 FIT/gFOBT 2004 Fecal DNA 2004 Flexible Sigmoidoscopy 2004 Imm-Zoster, Recombinant (1 of 2) 2009 Imm-Pneumococcal 50+ (2 of 2 - PCV) 12/27/2014 12/27/2013 Imm-DTaP/Tdap/Td (1 - Tdap) 03/03/2023 03/02/2023, 0 02/10/2009 Bone Density Screening 2024 Falls Prevention 2024 Alcohol and Drug Screen 07/24/2024 Depression Annual Screen 07/24/2024 [id number] ( season) 2025 Imm-Influenza (#1) 2025 Dental Perio Charting 05/16/2025 05/14/2024 , 10/09/2023, 04/10/2023 Tobacco Screening 12/12/2025 12/12/2024 Dental Examination 12/14/2025 12/12/2024, 1 , 10/09/2023, Additional history exists Dental Prophy 12/14/2025 12/12/2024, 04/24, 10/09/2023, Additional history exists Hypertension Screening (#1) 12/19/2025 Lipid Screening 01/28/2026 01/28/2025, 06/23, 03/08/2024 Diabetes Screening 01/29/2028 01/28/2025, 0 01/06/2025, 01/06/2025, Additional history exists Dental FMX/Pano 04/12/2028 04/10/2023 Procedures Procedure Name Priority Date/Time Associated Diagnosis Comments PROPHYLAXIS - ADULT Routine 12/12/2024 9 :00 AM EDT Encounter for dental examination and cleaning without abnormal findings PERIODIC ORAL EVALUATION ESTABLISHED PATIENT Routine 12/12/2024 9:00 AM EDT Encounter for dental examination and cleaning without abnormal findings COMP PERIODONTAL EVALUATION - NEW/EST PATIENT Routine 10/09/2023 9:40 AM EDT Encounter for dental examination PANORAMIC RADIOGRAPHIC IMAGE Routine 04/10/2023 10:20 AM EDT Encounter for dental examination from Last 3 Months or Most Recently Relevant to Health Maintenance Insurance [place] DENTAL [employer] MEDICARE COMPLETE [facility]
== END 2025-05-30 09:55 | disposition home or self-care (01) ==
LOC: HO.HMCH 08:41
PROVIDERS: PCP Internal Medicine; Visit Provider Internal Medicine
DX: Z00.00 Encounter for general adult medical examination without abnormal findings (principal); E11.22 Type 2 diabetes mellitus with diabetic chronic kidney disease; N18.9 Chronic kidney disease, unspecified; E78.00 Pure hypercholesterolemia, unspecified; Z78.0 Asymptomatic menopausal state; F17.200 Nicotine dependence, unspecified, uncomplicated

== ENCOUNTER → 2025-05-30 08:41 | Outpatient (BNVA) | payer OTHER, SELFPAY | PROVIDERS: PCP Internal Medicine; Visit Provider Internal Medicine | DX: Z00.00 Encounter for general adult medical examination without abnormal findings (principal); E11.22 Type 2 diabetes mellitus with diabetic chronic kidney disease; E78.00 Pure hypercholesterolemia, unspecified; N18.9 Chronic kidney disease, unspecified; D63.1 Anemia in chronic kidney disease; Z78.0 Asymptomatic menopausal state; Z87.891 Personal history of nicotine dependence | CPT/HCPCS: 96127; 99387 ==

== ENCOUNTER 2025-06-16 14:30 | Outpatient (AMB) | payer OTHER, SELFPAY ==
[2025-06-16 14:40] VITALS: BP 130/68; PULSE 101; O2SAT 97; BMI 34.2
--- NOTE | 2025-06-16 14:40 | HO.NEPHOV ---
Vital Signs 06/16/25 14:40 Height 5 ft Weight 175 lb BMI 34.2 BP 130/68 Blood Pressure Location Lt brachial Position Sitting Pulse 101 H Pulse Source Pulse Oximeter Pulse Oximetry (%) 97 Oxygen Delivery Method Room Air Intake Visit Reasons: INP DX- CKD Extrusion Die Template Maker Required: No Accompanied by: Self / Same As Patient Allergies clindamycin Allergy (Mild, Verified 06/16/25 14:43) Stomach Upset Latex, Natural Rubber Allergy (Mild, Verified 06/16/25 14:42) Hives methadone Allergy (Mild, Verified 06/16/25 14:42) Hives Opioids - Morphine Analogues Allergy (Mild, Verified 06/16/25 14:42) Hives Medication List - Last Reconciled 06/16/25 by Fredi Lai MD flash glucose scanning reader (FreeStyle Vin 2 [place]) As directed flash glucose sensor (FreeStyle Vin 2 Sensor kit) As directed semaglutide (Ozempic) 0.25 mg subcut QWEEK HPI Comments Details: The patient is a 64 year old individual presenting for a nephrology consultation for kidney evaluation due to a referral from another doctor. The patient was experiencing lower back pain, which resolved after discontinuing medications. The patient reports having stopped taking multiple prescribed medications on April 23, including insulin, montelukast, loratidine, gabapentin, and vitamin D, due to feeling unwell and wanting to start a new slate. While on these medications, the patient experienced nightly swelling in the right leg and an episode of paralysis on October 08, during which the patient was unable to move after lying down. The patient continues to take Ozempic for diabetes. Since discontinuing the medications, the patient reports feeling significantly better, with improved mood and decreased anxiety. Prior to this, the patient felt a loss of hope and experienced weight gain up to 205 lbs, which the patient attributes to comfort eating. The patient is now losing weight slowly and naturally. The patient has implemented lifestyle changes, including walking two times a week and participating in mamadou chi for 30 minutes daily. Dietary modifications include avoiding sugar, limiting salt intake, and eating more vegetables, avocados, and sauerkraut. Past surgical history includes two C-sections. The patient denies smoking or alcohol use. The patient is retired. [facility] Surgical History Hx of section Family History Mother Diabetes Father Diabetes Heart attack Son No problems noted. Son No problems noted. Social History Alcohol intake: never Patient Tobacco Use Status: Former Tobacco user e-Cigarette/Vaping Use: Never Used Current occupational status: disabled Cognitive needs: Yes Hearing needs: No Vision needs: Yes Review of Systems Const Denies fever(s) and Denies weight loss Card Denies chest pain Resp Denies cough and Denies hemoptysis GI Denies abdominal pain, Denies diarrhea and Denies nausea Musc Denies back pain Neuro Denies focal weakness Physical Exam Vital Signs: Last Vital Signs Pulse 101 H 06/16/25 14:40 BP 130/68 06/16/25 14:40 Pulse Ox 97 06/16/25 14:40 Oxygen Delivery Method Room Air 06/16/25 14:40 BMI result Body Mass Index 34.2 Comfortable Neck supple no JVD. Lungs entry equal no rales. Heart S1-S2 heard no gallop or rub. Abdomen soft nontender. Neuro alert awake oriented. No asterixis. Extremities no edema. Assessment & Plan Assessment & Plan (1) Type 2 diabetes mellitus: Code(s): E11.9 - Type 2 diabetes mellitus without complications Category: Medical Qualifiers: Chronic kidney disease stage: unspecified stage Diabetes mellitus complication detail: with chronic kidney disease Diabetes mellitus complication status: with kidney complications Diabetes mellitus assisted insulin use: unspecified terminal operations manager insulin use status Qualified Code(s): E11.22 - Type 2 diabetes mellitus with diabetic chronic kidney disease Plan 1. Kidney Evaluation Recent cr was normal. - Will await results of pending blood tests and a kidney ultrasound that have been ordered by another provider. - An order will be placed for a urine test, to be completed on Monday concurrently with the blood work. - A follow-up visit will be scheduled in 3-4 weeks to review all test results and establish a plan of care. 2. Type 2 Diabetes Mellitus - The patient is currently treated with Ozempic, having self-discontinued insulin. - The patient has an upcoming endocrinology appointment on Monday, the same day as the scheduled lab work. - The patient is commended for positive lifestyle modifications, including eliminating sugar and increasing physical activity, which contributes to diabetes management. 3. Adverse Drug Reaction - The patient reports feeling much better after stopping multiple medications, including insulin, gabapentin, loratidine, and montelukast, due to side effects such as leg swelling and malaise. Further work up and management would be based on the baseline work up as ordered Orders: Orders Total Protein Urine Random 2 Days E11 - Type 2 diabetes mellitus with diabetic chronic kidney disease Creatinine Urine 2 Days E11. - Type 2 diabetes mellitus with diabetic chronic kidney disease UA and rflx microscopic 2 Days . - Type 2 diabetes mellitus with diabetic chronic kidney disease Coding Level of Care Code New Pt Level 4 (12162) Diagnoses Type 2 diabetes mellitus with diabetic chronic kidney disease, unspecified CKD stage, unspecified whether terminal operations manager insulin use Chronic kidney disease stage: unspecified stage Diabetes mellitus complication detail: with chronic kidney disease Diabetes mellitus complication status: with kidney complications Diabetes mellitus assisted insulin use: unspecified terminal operations manager insulin use status
--- OUTSIDE RECORDS SUMMARY | 2025-06-16 19:27 | XMS_ITS | Encounter Summary ---
Author Organization [facility] Address [address] [place] [address] Care Team Providers Care Auto Overhauler Name Role Phone Frank Hernandez MD Primary Care Provider [phone] Reason for Visit * Reason Onset Date Comments Medication Problem 06/16/2025 Freestyle marco re 2 sensor Encounter Details Date Type Department Care Team (Late st Contact Info) Description 06/16/2025 Telephone Endocrinology - [place] [address] [place], [place] [phone] Antonette Rincon PA [address] [place] [address] Social History Tobacco Use Types Packs/Day Years [...] on file documented as of this encounter Ordered Prescriptions Prescription Sig Dispense Quantity Refills Last Filled Start Date End Date blood-glucose sensor (FreeStyle Vin 2 Plus Sensor) Apply 1 sensor and change every 15 days. 2 each 3 06/16/2025 documented in this encounter Progress Notes * HANY Chaudhry - 06/16/2025 4:31 PM EST Vin 2+ ordered. * Elle Иван Martinez - 06/16/2025 1:04 PM EST Endocrine Call Primary endocrine provider: Antonette Rincon PA-C Is the endocrine provider in the office toady?: yes Who is calling? A pharmacist: Pharmacy: [facility] Pharmacist Name: Pharmacy . If not the patient or parent/guardian please check for authorization to share/verbal release. Why is the person calling? Medication refill; Message from pharmacy alternative requested. Please send to endocrine provider with alternative medication listed. . Product backordered/unavailable: freestyle vin 2 & 3 sensors are being discontinued by mfr. And replaced by vin plus sensors. Please consider the alternative listed & send rx if appropriate for your patient. Suggested: Freestyle vin 2 plus sensor documented in this encounter Plan of Treatment Upcoming Encounters Date Type Department Care Team (Late st Contact Info) Description 07/30/2025 8:45 AM EST Office Visit Endocrinology [address] [phone] Antonette Rincon PA [address] [place] [address] 12/30/2025 8:30 AM EDT Office Visit Pulmonology - [place] [address] [place] [phone] Janna Saenz NP [address] [place] [address] documented as of this encounter Visit Diagnoses Not on filedocumented in this encounter Care Teams Auto Overhauler Relationship Specialty Start Date End Date Frank Hernandez MD [address] [place] [address] PCP - General Internal Medicine 01/30/09 documented as of this encounter
--- OUTSIDE RECORDS SUMMARY | 2025-06-16 19:27 | XMS_ITS | Encounter Summary ---
Author Organization [facility] Address [address] [place] [address] Care Team Providers Care Bottle House Pumper Name Role Phone Frank Hernandez MD Primary Care Provider [phone] Encounter Details Date Type Department Care Team (Late Contact Info) Description 04/24/2025 Results Follow-Up [address] [phone] Akash Soriano MD [address] [place] [phone] Social History Tobacco Use Types Packs/Day Years [...] 07/30/2025 8:45 AM EST Office Visit Endocrinology [facility] [address] [place], [place] [phone] Antonette Rincon PA [address] [place], [place] 12/30/2025 8:30 AM EDT Office Visit Pulmonology [facility] [address] [place] [phone] Janna Saenz, RADU [address] [place] [phone] documented as of this encounter Visit Diagnoses Not on filedocumented in this encounter Care Teams Bottle House Pumper Relationship Specialty Start Date End Date Frank Hernandez MD [address] [place] [phone] PCP - General Internal Medicine 01/30/09 documented as of this encounter
--- OUTSIDE RECORDS SUMMARY | 2025-06-16 19:27 | XMS_ITS | Clinical Summary ---
Author Organization [address] Address [address] [place] [phone] Phone Care Team Providers Care Mammography Technician Name Role Phone Frank Hernandez MD Primary Care Provider [phone] Allergies Active Allergy Reactions Criticality Noted Date Comments Cqbrnyhlptfz-Tui-Fntnfdnftzfco Hives 02/10 Cephalexin Hives High 01/31/2022 Latex Hives 02/10/2009 Methadone 04/20/2017 Morphine 04/20/2017 Hives , itchiness Medications hydrocortisone 2.5 % cream Apply 1 Application topically 2 (two) times a day. 024 Active gabapentin (NEURONTIN) 600 mg tablet Take 1 Tablet by mouth 3 times daily. 024 Active cholecalciferol (VITAMIN D-3) 5,000 Units tablet Take 125 mcg by mouth daily. 024 Active ONETOUCH DELICA LANCETS [facility] Apply 1 Stick topically 2 times daily. E11.29 022 Active blood-glucose meter (BLOOD GLUCOSE MONITORING [facility]) E11.29 to check glucose upto 2 times a day Active flash glucose scanning reader (FreeStyle Vin 2 [place]) [facility] 1 Device by Does not apply route continuous. 022 Active ibuprofen (ADVIL,MOTRIN) 800 mg tablet TAKE 1 TABLET BY MOUTH EVERY 8 HOURS NEEDED FOR PAIN 270 tablet Active montelukast (SINGULAIR) 10 mg tabletIndications :Moderate persistent asthma without complication Take 1 tablet (10 mg total) by mouth at bedtime. at bedtime. 90 each 3 025 2025 Active rosuvastatin (CRESTOR) 20 mg tabletIndications :Hyperlipidemia, unspecified hyperlipidemia type Take 1 tablet (20 mg total) by mouth 1 (one) time each day. 30 each 5 025 2024 Active atorvastatin (LIPITOR) 40 mg tablet TAKE 1 TABLET BY MOUTH EVERY DAY 90 tablet 1 Active clotrimazole (LOTRIMIN) 1 % cream Apply topically 2 (two) times a day. Apply small amount to affected skin twice a day 45 g Active insulin glargine,hum.rec. anlog (Basaglar KwikPen U-100 Insulin) 100 unit/mL (3 mL) injection penIndications:Ty pe 2 diabetes mellitus with stage 3 chronic kidney disease, with long-term current use of insulin, unspecified whether stage 3a or 3b CKD (CMS/HCC V24, CMS/[facility] V28) Inject 12-16 Units into the skin at bedtime.Strength : 100 unit/mL (3 mL) 15 mL 1 Active Additional Information Patient not taking.Reported on 04/23/2025 insulin aspart (NovoLOG Flexpen U-100 Insulin) 100 unit/mL (3 mL) injection penIndications:Ty pe 2 diabetes mellitus with stage 3 chronic kidney disease, with long-term current use of insulin, unspecified whether stage 3a or 3b CKD (CMS/HCC V24, CMS/[facility] V28) INJECT INTO SKIN 3 TIMES A DAY SLIDING SCALE: <70: 0 UNITS, 71-100: 0 UNITS, 101-150: 6 UNITS, 151-200: 10 UNITS, 201-250: 12 UNITS, 251-300: 14 UNITS, 300-350: 16 UNITS, 351-400: 18 UNITS, >400: 20 UNITS AND CALL ME. 45 mL 1 Active Additional Information Patient not taking.Reported on 04/23/2025 loratadine (CLARITIN) 10 mg tabletIndications :Moderate persistent asthma without complication TAKE 1 TABLET BY MOUTH 1 TIME EACH DAY. 90 tablet 1 Active Ozempic 0.25 mg or 0.5 mg (2 mg/3 mL) injection penIndications:Ty pe 2 diabetes mellitus with stage 3 chronic kidney disease, with long-term current use of insulin, unspecified whether stage 3a or 3b CKD ([facility] V24, [facility] V28) INJECT 0.25 MG SUBCUTANEOUSLY EVERY 7 DAYS 3 mL 5 025 Active flash glucose sensor (FreeStyle Vin 2 Sensor) kitIndications:Ty pe 2 diabetes mellitus with stage 3 chronic kidney disease, with long-term current use of insulin, unspecified whether stage 3a or 3b CKD ([facility] V24, [facility] V28) Use to monitor your blood sugars E 11.29 6 each 1 025 Active blood-glucose sensor (FreeStyle Vin 2 Plus Sensor) Apply 1 sensor and change every 15 days. 2 each 3 025 Active flash glucose sensor (FreeStyle Vin 2 Sensor) kitIndications:Ty pe 2 diabetes mellitus with stage 3 chronic kidney disease, with long-term current use of insulin, unspecified whether stage 3a or 3b CKD ([facility] V24, [facility] V28) Use to monitor your blood sugars 6 EA 1 025 2024 Discontinued Active Problems Problem Noted Date Diagnosed Date DM (diabetes mellitus), type 2 with renal complications ([facility] V24, [facility] V28) 05/14/2021 Nuclear sclerosis of both eyes 12/29/2016 Retinal drusen of both eyes 12/29/2016 Chronic back pain 03/10/2016 Diabetic neuropathy associat ed with type 2 diabetes mellitus ([facility] V24, [facility] V28) 03/10/2016 Microalbuminuria 03/10/2016 Anatomical narrow angle 11/23/2015 Cataracts, bilateral 11/23/2015 COPD (chronic obstructive pu lmonary disease) ([facility] V24, [facility] V28) 11/12/2013 Type 2 diabetes mellitus wit h ophthalmic manifestations ([facility] V24, [facility] V28) 09/28/2013 Hypothyroidism 09/23/2011 Hyperlipidemia 07/22/2010 Asthma 02/10/2009 RSD (reflex sympathetic dystrophy) 02/10/2009 Seasonal allergies 02/10/2009 Encounters Date Type Department Care Team Description 06/16/2025 Telephone Endocrinology - [address] [phone] Antonette Rincon PA 05/22/2025 [facility] [phone] Frank Hernandez MD 05/19/2025 [facility] [address] [phone] Frank Hernandez MD 05/14/2025 [facility] [address] [phone] Frank Hernandez MD 04/24/2025 Results Follow-Up [address] [phone] Akash Soriano MD 04/23/2025 9:30 AM EDT Office Visit [address] [phone] Akash Soriano MD Type 2 diabetes mellitus with stage 3 chronic kidney disease, with long-term current use of insulin, unspecified whether stage 3a or 3b CKD (CMS/HCC V24, CMS/HCC V28) (Primary Dx) 04/08/2025 [facility] - [address] [phone] Frank Hernandez MD 04/03/2025 [facility] [address] [phone] Frank Hernandez MD 04/01/2025 [facility] [address] [phone] Frank Hernandez MD from Last 3 Months Immunizations Immunization Administration Dates Next Due Pneumococcal polysaccharide 23 valent (Pneumovax 23) 2yo and older 12/27/2013 Td Tetanus diptheria (Tdvax) 7yo and older 03/02,02/10/2009 Surgical History Surgery Date Site/Laterality Comments SECTION PROCEDURE: OR DELIVERY ONLY; COMMENT: x2 COLONOSCOPY 03/17/2011 PROCEDURE: HISTORICAL COLONOSCOPY; COMMENT: normal; repeat in ten yrs Medical History Medical History Date Comments Hypothyroidism 09/23/2011 DX:Hypothyroidis m COPD (chronic obstructive pu lmonary disease) ([facility] V24, [facility] V28) 11/12/2013 DX:COPD (chronic o bstructive pulmonary disease) ([facility]) Microalbuminuria 03/10/2016 DX:Microalbumin uria Type 2 diabetes mellitus wit h ophthalmic manifestations ([facility] V24, [facility] V28) 09/28/2013 DX:Type 2 diabetes mellitus with ophthalmic manifestations ([facility]); COMMENT: NS eye exam 04/10/13. Cataracts, bilateral 11/23/2015 DX:Cataract s, bilateral Type 2 diabetes, controlled, with neuropathy ([facility] V24, [facility] V28) 03/10/2016 DX:Type 2 diabet es, controlled, with neuropathy ([facility]) Controlled type 2 diabetes w ith renal [...] 07/30/2025 8:45 AM EST Office Visit Endocrinology [facility] [address] [place] [phone] Antonette Rincon PA [address] [place] [address] 12/30/2025 8:30 AM EDT Office Visit Pulmonology - [address] [place] [address] Janna Saenz NP [address] [place] [phone] Health Maintenance Due Date Last Done Comments [...] stage 3a or 3b CKD (CMS/HCC V24, [facility] V28) BUN Routine 04/23/2025 10:28 AM EDT Type 2 diabetes mellitus with stage 3 chronic kidney disease, with long-term current use of insulin, unspecified whether stage 3a or 3b CKD ([facility] V24, [facility] V28) HEMOGLOBIN A1C Routine 04/23/2025 10:28 AM EDT Type 2 diabetes mellitus with stage 3 chronic kidney disease, with long-term current use of insulin, unspecified whether stage 3a or 3b CKD ([facility] V24, [facility] V28) LIPID PANEL WITH REFLEX TO DIRECT [...] LAB CHEMISTRY METHOD 04/23/2025 4:01 PM EDT [facility] eGFR 79 >=60 mL/min/1. 73m2 LAB CHEMISTRY METHOD 04/23/2025 4:01 PM EDT [facility] Comment:Calculation based on the Chronic Kidney Disease Epidemiology Collaboration (CKD-EPI) equation refit without adjustment for race. Blood Venous blood specimen / Unknown Venipuncture / Unknown 04/23/2025 10:28 AM EDT 04/23/2025 10:28 AM EDT us Akash Soriano MD LAB BLOOD ORDERABLES Final Resul t [facility] [address] [place] [address], * BUN (04/23/2025 10:28 AM EDT) BUN 10 5 - 25 mg/dL LAB CHEMISTRY METHOD 04/23/2025 4:01 PM EDT [facility] Blood Venous blood specimen / Unknown Venipuncture / Unknown 04/23/2025 10:28 AM EDT 04/23/2025 10:28 AM EDT us Akash Soriano MD LAB BLOOD ORDERABLES Final Resul t Performing Organization Address [facility] Co de Phone Number [facility] [address] [place] [address], [place] [phone] * (ABNORMAL) Hemoglobin A1c (04/23/2025 10:28 AM EDT) Hemoglobin A1C 7.5(H) <6.5 % LAB CHEMISTRY METHOD 04/23/2025 10:25 PM EDT [facility] Mean Bld Glu Estim. 169 mg/dL LAB CHEMISTRY METHOD 04/23/2025 10:25 PM EDT [facility] Blood Venous blood specimen / Unknown Venipuncture / Unknown 04/23/2025 10:28 AM EDT 04/23/2025 10:28 AM EDT us Akash Soriano MD LAB BLOOD ORDERABLES Final Resul t Performing Organization Address City/[facility]/ZIP Co de Phone Number [facility] [address] [place] [address], [place] [phone] * (ABNORMAL) Lipid panel with reflex to direct LDL (01/28/2025 1:45 PM EDT) [facility] Cholesterol 228(H) 0 - 200 mg/dL LAB CHEMISTRY METHOD 01/28/2025 7:41 PM EDT [facility] Triglycerides 126 0 - 150 mg/dL LAB CHEMISTRY METHOD 01/28/2025 7:41 PM EDT [facility] HDL 61 >=40 mg/dL LAB CHEMISTRY METHOD 01/28/2025 7:41 PM EDT [facility] LDL Calculated 142(H) 0 - 100 mg/dL LAB CHEMISTRY METHOD 01/28/2025 7:41 PM EDT [facility] VLDL Cholesterol Dale 25.2 mg/dL LAB CHEMISTRY METHOD 01/28/2025 7:41 PM EDT [facility] Non HDL Chol. (LDL+VLDL) 167(H) <145 mg/dL LAB CHEMISTRY METHOD 01/28/2025 7:41 PM EDT [facility] Chol/HDL Ratio 3.7 0.0 - 4.4 LAB CHEMISTRY METHOD 01/28/2025 7:41 PM EDT [facility] Blood Venous blood specimen / Unknown Venipuncture / Unknown 01/28/2025 1:45 PM EDT 01/28/2025 1:45 PM EDT Frank Hernandez MD LAB BLOOD ORDERABLES Final Res ult [facility] [address] [place] [address], [place] [phone] * Diabetes Eye Exam (12/20/2023) [facility] Diabetes: Annual Retina Eye Exam abstracted us Gregory Provider HEALTH MAINTENANCE Final Result * Colonoscopy (11/09/2023) [facility] Colonoscopy no interpretation , abstracted Anatomical Region Laterality Modality Other Historical Provider HEALTH MAINTENANCE Final Result * Urine Albumin Creatinine Ratio (11/07/2023) Pathologist [facility] Urine Albumin Creatinine Ratio abstracted Historical Provider [facility] Final Result * SCREENING MAMMOGRAPHY BI 2-VIEW [...] cancer risk category Low (<15%) Tika Peñaloza IT OPERATIONS MANAGER IMG XR PROCEDURES Phuong l Result * Cervical Cancer Screening: HPV (12/22/2022) Cervical Cancer Screening: HPV negative, abstracted Historical Provider HEALTH MAINTENANCE Final Result * Hepatitis C Screening (12/27/2013) Hepatitis C Screening abstracted Historical Provider HEALTH MAINTENANCE Final Result from Last 3 Months or Most Recently Relevant to Health Maintenance Insurance [employer] MEDICARE ADVANTAGE [place]ICAID - [place] Care Teams Mammography Technician Relationship Specialty Start Date End Date Frank Hernandez MD [address] [place] [id number] PCP - General Internal Medicine 01/30/09
== END 2025-06-16 14:57 | disposition home or self-care (01) ==
LOC: HO.HKA 14:31
PROVIDERS: PCP Internal Medicine; Visit Provider Internal Medicine Hypertension Specialist
DX: E11.22 Type 2 diabetes mellitus with diabetic chronic kidney disease (principal)
CPT/HCPCS: 99204

== ENCOUNTER → 2025-06-16 14:30 | Outpatient (BNVA) | payer OTHER, SELFPAY | PROVIDERS: PCP Internal Medicine; Visit Provider Internal Medicine Hypertension Specialist | DX: E11.22 Type 2 diabetes mellitus with diabetic chronic kidney disease (principal); N18.9 Chronic kidney disease, unspecified; Z79.85 Long-term (current) use of injectable non-insulin antidiabetic drugs | CPT/HCPCS: 99202 ==

== ENCOUNTER 2025-06-18 09:05 | Outpatient (REF) | payer OTHER, SELFPAY ==
--- OUTSIDE RECORDS SUMMARY | 2025-06-18 09:48 | XMS_ITS | Encounter Summary ---
Author Organization [facility] Address [address] [place] [address] Care Team Providers Care Childcare Center Director Name Role Phone Frank Hernandez MD Primary Care Provider [phone] Encounter Details Date Type Department Care Team (Late Contact Info) Description 04/24/2025 Results Follow-Up [address] [phone] Akash Soriano MD [address] [place] [phone] Social History Tobacco Use Types Packs/Day Years [...] 07/30/2025 8:45 AM EST Office Visit Endocrinology [facility] [address] [place], [place] [phone] Antonette Rincon PA [address] [place], [place] 12/30/2025 8:30 AM EDT Office Visit Pulmonology [facility] [address] [place] [phone] Janna Saenz, RADU [address] [place] [phone] documented as of this encounter Visit Diagnoses Not on filedocumented in this encounter Care Teams Childcare Center Director Relationship Specialty Start Date End Date Frank Hernandez MD [address] [place] [address] PCP - General Internal Medicine 01/30/09 documented as of this encounter
--- OUTSIDE RECORDS SUMMARY | 2025-06-18 09:48 | XMS_ITS | Clinical Summary ---
Author Organization [address] Address [address] [place] [phone] Phone Care Team Providers Care Delivery Assistant Name Role Phone Frank Hernandez MD Primary Care Provider [phone] Allergies Active Allergy Reactions Criticality Noted Date Comments Ctcnyhjavthq-Qxj-Jggtqnqfpibsh Hives 02/10 Cephalexin Hives High 01/31/2022 Latex [...] mouth daily. 024 Active ONETOUCH [facility]ICA [facility] Apply 1 Stick topically 2 times daily. E11.29 022 Active blood-glucose meter (BLOOD GLUCOSE MONITORING [facility]) E11.29 to check glucose upto 2 times a day 022 Active flash glucose scanning reader (FreeStyle Vin 2 [place] [facility] [place] Device by Does not apply route [...] or 3b CKD (CMS/HCC V24, CMS/[facility] V28) Inject 12-16 Units into the [...] or 3b CKD (CMS/HCC V24, CMS/[facility] V28) INJECT INTO SKIN 3 TIMES [...] unspecified whether stage 3a or 3b CKD ([place] V24, [facility] V28) INJECT 0.25 MG SUBCUTANEOUSLY EVERY 7 DAYS 3 mL 5 025 Active flash glucose sensor (FreeStyle Vin 2 Sensor) kitIndications:Ty pe 2 diabetes mellitus with stage 3 chronic kidney disease, with long-term current use of insulin, unspecified whether stage 3a or 3b CKD ([facility] V24, [facility] V28) Use to monitor your blood [...] unspecified whether stage 3a or 3b CKD ([facility] V24, [facility] V28) Use to monitor your blood sugars 6 EA 1 025 2024 Discontinued Active Problems Problem Noted Date Diagnosed Date DM (diabetes mellitus), type 2 with renal complications ([facility] V24, [facility] V28) 05/14/2021 Nuclear sclerosis of both eyes 12/29/2016 Retinal drusen of both eyes 12/29/2016 Chronic back pain 03/10/2016 Diabetic neuropathy associat ed with type 2 diabetes mellitus ([facility] V24, [facility] V28) 03/10/2016 Microalbuminuria 03/10/2016 Anatomical narrow angle 11/23/2015 Cataracts, bilateral 11/23/2015 COPD (chronic obstructive pu lmonary disease) ([place] V24, [facility] V28) 11/12/2013 Type 2 diabetes mellitus wit h ophthalmic manifestations ([facility] V24, [facility] V28) 09/28/2013 Hypothyroidism 09/23/2011 Hyperlipidemia 07/22/2010 Asthma 02/10/2009 RSD (reflex sympathetic dystrophy) 02/10/2009 Seasonal allergies 02/10/2009 Encounters Date Type Department Care Team Description 06/16/2025 Telephone Endocrinology - [address] [phone] Antonette Rincon PA 05/22/2025 [facility] [phone] Frank Hernandez MD 05/19/2025 [facility] [address] [phone] Frank Hernandez MD 05/14/2025 [facility] [address] [phone] Frank Hernandez MD 04/24/2025 Results Follow-Up [address] [phone] Akash Soriano MD 04/23/2025 9:30 AM EDT Office Visit [address] [phone] Akash Soriano MD Type 2 diabetes mellitus with stage 3 chronic kidney disease, with long-term current use of insulin, unspecified whether stage 3a or 3b CKD (CMS/HCC V24, CMS/HCC V28) (Primary Dx) 04/08/2025 [facility] - [address] [phone] Frank Hernandez MD 04/03/2025 [facility] [address] [phone] Frank Hernandez MD 04/01/2025 [facility] [address] [phone] Frank Hernandez MD from Last 3 Months Immunizations Immunization Administration Dates Next Due Pneumococcal polysaccharide 23 valent (Pneumovax 23) 2yo and older 12/27/2013 Td Tetanus diptheria (Tdvax) 7yo and older 03/02,02/10/2009 Surgical History Surgery Date Site/Laterality Comments SECTION PROCEDURE: MS DELIVERY ONLY; COMMENT: x2 COLONOSCOPY 03/17/2011 PROCEDURE: HISTORICAL COLONOSCOPY; COMMENT: normal; repeat in ten yrs Medical History Medical History Date Comments Hypothyroidism 09/23/2011 DX:Hypothyroidis m COPD (chronic obstructive pu lmonary disease) ([place] V24, [place] V28) 11/12/2013 DX:COPD (chronic o bstructive pulmonary disease) ([facility]) Microalbuminuria 03/10/2016 DX:Microalbumin uria Type 2 diabetes mellitus wit h ophthalmic manifestations ([place] V24, [place] V28) 09/28/2013 DX:Type 2 diabetes mellitus with ophthalmic manifestations ([facility]); COMMENT: NS eye exam 04/10/13. Cataracts, bilateral 11/23/2015 DX:Cataract s, bilateral Type 2 diabetes, controlled, with neuropathy ([place] V24, [place] V28) 03/10/2016 DX:Type 2 diabet es, controlled, with neuropathy ([facility]) Controlled type 2 diabetes w ith [...] 07/30/2025 8:45 AM EST Office Visit [place] [facility] [address] [place] [phone] Antonette Rincon PA [address] [place] [address] 12/30/2025 8:30 AM EDT Office Visit Pulmonology - [address] [place] [address] Janna Saenz NP [address] [place] [phone] Health Maintenance Due Date Last Done Comments [...] stage 3a or 3b CKD (CMS/HCC V24, [facility] V28) BUN Routine 04/23/2025 10:28 AM EDT Type 2 diabetes mellitus with stage 3 chronic kidney disease, with long-term current use of insulin, unspecified whether stage 3a or 3b CKD ([facility] V24, [facility] V28) HEMOGLOBIN A1C Routine 04/23/2025 10:28 AM EDT Type 2 diabetes mellitus with stage 3 chronic kidney disease, with long-term current use of insulin, unspecified whether stage 3a or 3b CKD ([facility] V24, [facility] V28) LIPID PANEL WITH REFLEX TO [...] LAB CHEMISTRY METHOD 04/23/2025 4:01 PM EDT [facility] eGFR 79 >=60 mL/min/1. 73m2 LAB CHEMISTRY METHOD 04/23/2025 4:01 PM EDT [facility] Comment:Calculation based on the Chronic Kidney Disease Epidemiology Collaboration (CKD-EPI) equation refit without adjustment for race. Blood Venous blood specimen / Unknown Venipuncture / Unknown 04/23/2025 10:28 AM EDT 04/23/2025 10:28 AM EDT us Akash Soriano MD LAB BLOOD ORDERABLES Final Resul t [facility] [address] [place] [address], * BUN (04/23/2025 10:28 AM EDT) BUN 10 5 - 25 mg/dL LAB CHEMISTRY METHOD 04/23/2025 4:01 PM EDT [facility] Blood Venous blood specimen / Unknown Venipuncture / Unknown 04/23/2025 10:28 AM EDT 04/23/2025 10:28 AM EDT us Akash Soriano MD LAB BLOOD ORDERABLES Final Resul t Performing Organization Address [facility] Co de Phone Number [facility] [address] [place] [address], [place] [phone] * (ABNORMAL) Hemoglobin A1c (04/23/2025 10:28 AM EDT) Hemoglobin A1C 7.5(H) <6.5 % LAB CHEMISTRY METHOD 04/23/2025 10:25 PM EDT [facility] Mean Bld Glu Estim. 169 mg/dL LAB CHEMISTRY METHOD 04/23/2025 10:25 PM EDT [facility] Blood Venous blood specimen / Unknown Venipuncture / Unknown 04/23/2025 10:28 AM EDT 04/23/2025 10:28 AM EDT us Akash Soriano MD LAB BLOOD ORDERABLES Final Resul t Performing Organization Address City/[facility]/ZIP Co de Phone Number [facility] [address] [place] [address], [place] [phone] * (ABNORMAL) Lipid panel with reflex to direct LDL (01/28/2025 1:45 PM EDT) [facility] Cholesterol 228(H) 0 - 200 mg/dL LAB CHEMISTRY METHOD 01/28/2025 7:41 PM EDT [facility] Triglycerides 126 0 - 150 mg/dL LAB CHEMISTRY METHOD 01/28/2025 7:41 PM EDT [facility] HDL 61 >=40 mg/dL LAB CHEMISTRY METHOD 01/28/2025 7:41 PM EDT [facility] LDL Calculated 142(H) 0 - 100 mg/dL LAB CHEMISTRY METHOD 01/28/2025 7:41 PM EDT [facility] VLDL Cholesterol [place] 25.2 mg/dL LAB CHEMISTRY METHOD 01/28/2025 7:41 PM EDT [facility] Non HDL Chol. (LDL+VLDL) 167(H) <145 mg/dL LAB CHEMISTRY METHOD 01/28/2025 7:41 PM EDT [facility] Chol/HDL Ratio 3.7 0.0 - 4.4 LAB CHEMISTRY METHOD 01/28/2025 7:41 PM EDT [facility] Blood Venous blood specimen / Unknown Venipuncture / Unknown 01/28/2025 1:45 PM EDT 01/28/2025 1:45 PM EDT Frank Hernandez MD LAB BLOOD ORDERABLES Final Res ult [facility] [address] [place] [address], [place] [phone] * Diabetes Eye Exam (12/20/2023) [facility] Diabetes: Annual Retina Eye Exam abstracted us Gregory Provider HEALTH MAINTENANCE Final Result * Colonoscopy (11/09/2023) [facility] Colonoscopy no interpretation , abstracted Anatomical Region Laterality Modality Other Historical Provider HEALTH MAINTENANCE Final Result * Urine Albumin Creatinine Ratio (11/07/2023) Pathologist [facility] Urine Albumin Creatinine Ratio abstracted Historical Provider HEALTH [facility] Final Result * SCREENING MAMMOGRAPHY BI [...] Breast cancer risk category Low (<15%) Tika Peñaloaz CUSTODY OFFICER IMG XR PROCEDURES Phuong l Result * Cervical Cancer Screening: HPV (12/22/2022) Cervical Cancer Screening: HPV negative, abstracted Historical Provider HEALTH MAINTENANCE Final Result * Hepatitis C Screening (12/27/2013) Hepatitis C Screening abstracted Historical Provider HEALTH MAINTENANCE Final Result from Last 3 Months or Most Recently Relevant to Health Maintenance Insurance [employer] MEDICARE ADVANTAGE MEDICAID - [place] Care Teams Delivery Assistant Relationship Specialty Start Date End Date Frank Hernandez MD [address] [place] [id number] PCP - General Internal Medicine 01/30/09
--- OUTSIDE RECORDS SUMMARY | 2025-06-18 09:48 | XMS_ITS | Encounter Summary ---
Author Organization [facility] Address [address] [place] [address] Care Team Providers Care Net Lead Architect Name Role Phone Frank Hernandez MD Primary Care Provider [phone] Reason for Visit * Reason Onset Date Comments Medication Problem 06/16/2025 Freestyle marco re 2 sensor Encounter Details Date Type Department Care Team (Late st Contact Info) Description 06/16/2025 Telephone Endocrinology - [place] [address] [place], [place] [phone] Antonette Rincon PA [address] [place] [address] Social History Tobacco Use Types Packs/Day Years [...] yes Who is calling? A pharmacist: Pharmacy: [facility] Pharmacist Name: Pharmacy . If not the [...] 07/30/2025 8:45 AM EST Office Visit Endocrinology [address] [phone] Antonette Rincon PA [address] [place] [address] 12/30/2025 8:30 AM EDT Office Visit Pulmonology - [place] [address] [place] [phone] Janna Saenz NP [address] [place] [address] documented as of this encounter Visit Diagnoses Not on filedocumented in this encounter Care Teams Net Lead Architect Relationship Specialty Start Date End Date Frank Hernandez MD [address] [place] [id number] PCP - General Internal Medicine 01/30/09 documented as of this encounter
[2025-06-18 10:02] LABS: Hematocrit 36.4 % (37.0-47.0); Hemoglobin 12.3 g/dl (12.0-16.0); Mean Corpuscular HGB Conc 33.8 g/dl (31.0-35.0); Mean Corpuscular Hemoglobin 28.3 pg (27.0-33.0); Mean Corpuscular Volume 83.7 fL (80.0-98.0); NRBC Abs Auto 0.000 X10*3/uL (0.0-0.012); NRBC Pct Auto 0.0 /100WBC (0.0-0.2); Platelet Count 312 X10*3/uL (160-400); Red Blood Count 4.35 X10*6/uL (4.20-5.50); White Blood Count 8.1 X10*3/uL (4.8-10.8)
[2025-06-18 10:38] LABS: Appearance Urine Clear; Glucose Urine UA Negative (Negative); PH 6.5 (5.0-9.0); Specific Gravity - Urine 1.010 (1.005-1.025)
[2025-06-18 11:07] LABS: HIV Num 1 0.07 S/CO (0.00-0.99); ~HepC Num1 1.20 S/CO (0.00-0.79); ~Hepatitis C Antibody Reactive (Nonreactive)
[2025-06-18 11:08] LABS: Alanine Aminotransferase 33 U/L (0-31); Albumin Level 4.1 g/dL (3.5-5.0); Alkaline Phosphatase 88 U/L (39-117); Anion Gap 10 (12-20); Aspartate Amino Transferase 32 U/L (5-31); Blood Urea Nitrogen 10 mg/dL (9-16); Calcium 9.3 mg/dL (8.4-10.2); Carbon Dioxide 23 mmol/L (22-29); Chloride 109 mmol/L (96-108); Cholesterol 209 mg/dL (<200); Estimated Glomerular Filt Rate > 60; HDL Cholesterol 50 mg/dL (>40); Potassium 4.0 mmol/L (3.3-5.1); Sodium 138 mmol/L (135-145); Total Protein 7.2 g/dL (6.5-8.0); Triglycerides 86 mg/dL (<150)
[2025-06-18 11:22] LABS: Folate 8.8 ng/mL (> or = 4.0); Vitamin B12 424 pg/mL (200-900)
[2025-06-18 11:23] LABS: Total Protein Urine Random < 7 mg/dL (<12)
[2025-06-26 08:03] LABS: HCV Log PCR <1.18 NOT DETECTED Log IU/mL (NOT DETECTED); HepC Viral Load <15 NOT DETECTED IU/mL (NOT DETECTED)
== END 2025-06-18 09:06 | disposition home or self-care (01) ==
LOC: HO.LAB 09:05
PROVIDERS: Internal Medicine Hypertension Specialist; Visit Provider Internal Medicine
DX: Z00.00 Encounter for general adult medical examination without abnormal findings (principal); E11.22 Type 2 diabetes mellitus with diabetic chronic kidney disease; D64.9 Anemia, unspecified; N18.9 Chronic kidney disease, unspecified; Z79.4 Long term (current) use of insulin; Z11.4 Encounter for screening for human immunodeficiency virus [HIV]; Z11.59 Encounter for screening for other viral diseases; Z13.21 Encounter for screening for nutritional disorder
CPT/HCPCS: 36415; 80053; 80061; 81003; 82306; 82570; 82607; 82746; 82947; 83036; 84156; 84443; 85027; 86803; 87389; 87522; 99212

== ENCOUNTER 2025-06-18 09:29 | Outpatient (AMB) | payer OTHER, SELFPAY ==
[2025-06-18 09:35] VITALS: BP 132/74; PULSE 74; O2SAT 97; BMI 34.0
--- NOTE | 2025-06-18 09:35 | A.OFFVIS_ITS ---
Vital Signs 06/18/25 09:35 Height 5 ft Weight 174 lb 2.643 oz BMI 34.0 BP 132/74 Blood Pressure Location Rt brachial Position Sitting Pulse 74 Pulse Source Pulse Oximeter Pulse Oximetry (%) 97 Oxygen Delivery Method Room Air Intake Visit Reasons: Type 2 diabetes mellitus without complications Intake Note: NEW Patient presents today to establish treatment for Type 2 Diabetes Mellitus: Last Diabetic eye exam was on: 12/2024, [facility] Last Podiatry exam was on: Patient does not see a Analyst Sales Most recent HbA1c: 7.3%, 06/18/2025 Random Glucose: 152 mg/dL Supply Chain Assistant Required: No Accompanied by: Self / Same As Patient Allergies clindamycin Allergy (Mild, Verified 06/18/25 09:54) Stomach Upset Latex, Natural Rubber Allergy (Mild, Verified 06/18/25 09:54) Hives methadone Allergy (Mild, Verified 06/18/25 09:54) Hives Opioids - Morphine Analogues Allergy (Mild, Verified 06/18/25 09:54) Hives HPI Comments Details: 64 yo female presenting for diabetes consultation PMH of DM, HLD, allergies Diagnosed Current diabetes medications -Ozempic 0.25mg -Novolog sliding scale <150 0 units 151-200 10 units 201-250 12 units 251-300 14 units 301-350 16 units 351-400 18 units >400 20 units She is holding basaglar-since the beginning of April. She has infrequent hypoglycemia. She lost her CGM reader-it was vin 2 HbA1C 7.3% today. She is interested in CDE and nutrition She has neuropathy. Stopped gabapentin Eye exam 12/2024-[facility] ROS CONSTITUTIONAL: Denies weight loss, fever and chills. HEENT: Denies changes in vision and hearing. RESPIRATORY: Denies SOB and cough. CV: Denies palpitations and CP GI: Denies abdominal pain, nausea, vomiting and diarrhea. : Denies dysuria and urinary frequency. MSK: Denies new myalgia and joint pain. SKIN: Denies rash and pruritus. NEUROLOGICAL: Denies headache PSYCHIATRIC: Denies recent changes in mood. PHYSICAL EXAM: GENERAL: Alert and oriented x 3. NAD EYES: EOMI. Anicteric. HENT: Moist mucous membranes. No scleral icterus. No cervical lymphadenopathy. LUNGS: Clear to auscultation bilaterally. CARDIOVASCULAR: Regular rate and rhythm. No murmur. No JVD. ABDOMEN: Soft, non-tender +bs EXTREMITIES: No edema. Non-tender. SKIN: No rashes or lesions. Warm. NEUROLOGIC: No focal neurological deficits. CN II-XII grossly intact PSYCHIATRIC: Cooperative. Appropriate mood and affect [facility] Surgical History Hx of section Family History Mother Diabetes Father Diabetes Heart attack Son No problems noted. Son No problems noted. Social History Alcohol intake: never Patient Tobacco Use Status: Former Tobacco user e-Cigarette/Vaping Use: Never Used Current occupational status: disabled Cognitive needs: Yes Hearing needs: No Vision needs: Yes Physical Exam Vital Signs: Last Vital Signs Pulse 74 06/18/25 09:35 BP 132/74 06/18/25 09:35 Pulse Ox 97 06/18/25 09:35 Oxygen Delivery Method Room Air 06/18/25 09:35 BMI result Body Mass Index 34.0 Results AMB Hemoglobin A1c AMB Hemoglobin A1c 7.3 % Last Edit by AMANDA Tilley on 06/18/25 09:58 Results Reviewed Results Reviewed: Laboratory Last Values Glucose (Clinic) 152 mg/dL (60-115) H 06/18/25 09:45 Assessment & Plan Assessment & Plan (1) Type 2 diabetes mellitus: Code(s): E11.9 - Type 2 diabetes mellitus without complications Category: Medical Qualifiers: Diabetes mellitus tank terminal gauger insulin use: unspecified halfway insulin use status Diabetes mellitus complication status: with kidney complications Diabetes mellitus complication detail: with chronic kidney disease Chronic kidney disease stage: unspecified stage Qualified Code(s): E11.22 - Type 2 diabetes mellitus with diabetic chronic kidney disease Plan Type 2 diabetes Uncontrolled with A1C 7.3%. Discussed goal < 7.0%. Given some hypoglycemia I decreased her Novolog sliding scale. She does not want to increase her ozempic at this time Discussed treatment of hypoglycemia CGM ordered CDE and nutrition referral Return in 3 months or sooner as needed Orders: Orders AMB Hemoglobin A1c Today E11. - Type 2 diabetes mellitus with diabetic chronic kidney disease Referrals Diabetes Education Referral E11. - Type 2 diabetes mellitus with diabetic chronic kidney disease, E78.00 - Pure hypercholesterolemia, unspecified Drafter Electromechanical Nutrition Referral E11. - Type 2 diabetes mellitus with diabetic chronic kidney disease Medications: New FreeStyle Vin 3 [place] (blood-glucose,glass tube bender,cont) As directed 1 ea 0RF NS . - Type 2 diabetes mellitus with diabetic chronic kidney disease insulin aspart U-100 (Novolog FlexPen U-100 Insulin aspart) Three times daily subcutaneous with meals For BG <150 Take 0 units 151-200 2 units 201-250 4 units 251-300 6 units 301-350 8 units >350 10 units 1 sliding scale dose subcut USEASDIRECTD 15 mL 3RF FreeStyle Vin 3 Plus Sensor (blood-glucose sensor) every 15 days 6 ea 3RF NS . - Type 2 diabetes mellitus with diabetic chronic kidney disease Changed From semaglutide (Ozempic) for 4 weeks 0.25 mg subcut QWEEK . - Type 2 diabetes mellitus with diabetic chronic kidney disease To Ozempic (semaglutide) 0.25 mg (0.368 mL) subcut QWEEK 9 mL 3RF NS . - Type 2 diabetes mellitus with diabetic chronic kidney disease Coding Level of Care Code Est Pt Level 4 (01639) Diagnoses Type 2 diabetes mellitus with diabetic chronic kidney disease, unspecified CKD stage, unspecified whether tank terminal gauger insulin use . Diabetes mellitus tank terminal gauger insulin use: unspecified halfway insulin use status Diabetes mellitus complication status: with kidney complications Diabetes mellitus complication detail: with chronic kidney disease Chronic kidney disease stage: unspecified stage
[2025-06-18 09:48] LABS: Glucose, Whole Blood 152 mg/dL (60-115)
== END 2025-06-18 10:18 | disposition home or self-care (01) ==
LOC: HO.ENCR 09:29
PROVIDERS: PCP Internal Medicine; Visit Provider Internal Medicine
DX: E11.22 Type 2 diabetes mellitus with diabetic chronic kidney disease (principal)

== ENCOUNTER 2025-06-27 09:33 | Outpatient (AMB) | payer OTHER, SELFPAY ==
[2025-06-27 09:37] VITALS: BP 144/60; PULSE 90; RESP 18; O2SAT 98; BMI 35.0
--- NOTE | 2025-06-27 09:37 | A.OFFPC_ITS ---
Vital Signs 06/27/25 09:37 Height 5 ft Weight 179 lb 6 oz BMI 35.0 BP 144/60 H Blood Pressure Location Lt brachial Position Sitting Respiration 18 Pulse 90 Pulse Source Pulse Oximeter Temp Source Temporal Artery Scan Pulse Oximetry (%) 98 Oxygen Delivery Method Room Air Intake Visit Reasons: 1 month f/u Retail Commission Sales Associate Required: No Accompanied by: Self / Same As Patient Allergies clindamycin Allergy (Mild, Verified 06/27/25 09:38) Stomach Upset Latex, Natural Rubber Allergy (Mild, Verified 06/27/25 09:38) Hives methadone Allergy (Mild, Verified 06/27/25 09:38) Hives Opioids - Morphine Analogues Allergy (Mild, Verified 06/27/25 09:38) Hives Medication List - Last Reconciled 06/27/25 by Brian Mauro MD cholecalciferol (vitamin D3) 50 mcg PO DAILY FreeStyle Vin 3 Plus Sensor (blood-glucose sensor) every 15 days NS FreeStyle Vin 3 Rembert (blood-glucose,airport baggage screener,cont) As directed NS ibuprofen 800 mg PO Q8H PRN insulin aspart U-100 (Novolog FlexPen U-100 Insulin aspart) 1 sliding scale dose subcut USEASDIRECTD loratadine (Claritin) 10 mg PO DAILY PRN Ozempic (semaglutide) 0.25 mg (0.368 mL) subcut QWEEK NS pen needle, diabetic (Ultra-Fine Pen Needle) As directed Tobacco use date assessed: 06/27/25 Fall risk assessment: 2 + Falls in past year Last assessed Fall Risk: 06/27/25 Dental Screening Dental Screen Date: 06/27/25 Did you have a dental visit in the last 12 months?: Yes Did you have a dental problem in the last 6 months where you did not have access to dental care?: No Was dental information given to patient?: Patient has dentist HPI HPI Comments History of Present Illness Details The patient is a 64 year old female with PMH of CKD?, vit D deficiency, HLD, HTN, DM, presenting for medication refills and management of chronic conditions. The patient was seen in our clinic to establish care on 05/30/2025. During that visit the patient reported not taking any of her previously prescribed medications. HEr Blood work showed elevated Cholesterol and LDL. A prescription of statin was sent but the patient did not take it because she is worried about side effects. Also the patient was seen by endocrinology who started her on Insulin Novolog sliding scale but the patient reports not taking the medication. The patient reports history of allergies during the winter that was treated with Singulair and Claritin in the past. She is currently experiencing recurrence of her allergy symptoms. Her last HbA1c was 7.3%, and her loan manager's goal for her is 7.0%. She has a history of elevated blood pressure, which she attributes to stress and anxiety. BP in clinic is 144/60 mmHg. She reports a history of stage 3 kidney disease, but a recent evaluation by a software clerk indicated that her kidney function is fine. She also stopped taking pain medications like ibuprofen. She uses a walker for back pain as she is unstable on a cane. [facility] Surgical History Hx of section Family History Mother Diabetes Father Diabetes Heart attack Son No problems noted. Son No problems noted. Social History Alcohol intake: never Patient Tobacco Use Status: Former Tobacco user e-Cigarette/Vaping Use: Never Used Current occupational status: disabled Cognitive needs: Yes Hearing needs: No Vision needs: Yes Questionnaire Thrive Questionnaire Date Thrive assessed: 06/27/25 I am a: Patient What is your living situation today?: I have a steady place to live Within the past 12 months, did the food you bought not last and you didn't have the money to get more?: Never true Within the past 12 months, did you worry whether your food would run out before you got money to buy more?: Never true Do you have trouble paying for medicines?: No Do you have trouble getting transportation to medical appointments?: No Do you have trouble paying your heating and electricity bill?: Yes Do you have trouble taking care of your child, family member or friend?: No Do you have trouble with day-to-day activities such as bathing, preparing meals, shopping, managing finances, etc.?: No Are you currently unemployed and looking for a job?: No Are you interested in more education?: No Please select the resources that you would like help with: None Currently or been in a relationship where the following occur: No concerns reported THRIVE Score: 1 CAROLINA-7 AMB Questionnaire CAROLINA-7 Date CAROLINA - 7 assessed: 05/30/25 Source: Developed by Drs. Ricardo Bronson, Avis Chambers, Kvng Patricia and colleagues, with an educational martínez from [employer]. Review of Systems Const Details: As per HPI. Physical exam (Primary Care) Vital Signs: Last Vital Signs Pulse 90 06/27/25 09:37 Resp 18 06/27/25 09:37 BP 144/60 H 06/27/25 09:37 Pulse Ox 98 06/27/25 09:37 Oxygen Delivery Method Room Air 06/27/25 09:37 BMI result Body Mass Index 35.0 Tobacco/Smoking Status: Tobacco use Status Tobacco use date assessed 06/27/25 06/27/25 09:40 Patient Tobacco Use Status Former Tobacco user 06/27/25 09:40 e-Cigarette/Vaping Use Never Used 06/27/25 09:40 Thrive Assessment: Date of Thrive Assessment Date Thrive assessed 06/27/25 06/27/25 09:40 Currently or been in a relationship where the following occur: No concerns reported Const Other: Pertinent findings are in BOLD GENERAL APPEARANCE NAD, activity normal for age, well developed/ well nourished, no cyanosis, pallor, or diaphoresis. EYES lids/conjunctiva normal. EARS/NOSE/THROAT Mucous membranes moist, nares normal, lips/teeth normal uvula midline without oral pharyngeal erythema, exudate or swelling TMs normal bilaterally. No lymphangitis/lymphedema. HEAD/NECK normocephalic atraumatic, no facial trauma, neck is supple. RESPIRATORY respiratory effort normal, speaks in full sentences, no tripod position, no accessory muscle use. Lungs clear to auscultation without rhonchi, wheezes, rales CARDIAC Regular rate and rhythm, no edema. ABDOMINAL Soft, ND/NT. No evidence of fluid wave. No pulsatile masses on exam, rebound tenderness, Valencia sign or pain over Mcburney's point. MUSCLES/EXTREMITIES No abnormal range of motion, no swelling. SKIN Warm, pink and dry. No rashes, dermatoses, petechiae or lesions. NEUROLOGICAL Speech is clear and appropriate. Normal level of consciousness. Gait and coordination are normal. 5/5 strength in all extremities. PSYCH Normal mood and affect. Judgement/competence is appropriate Coding Level of Care Code Est Pt Level 5 (23641) Diagnoses High cholesterol E78.00 Type 2 diabetes mellitus with diabetic chronic kidney disease, unspecified CKD stage, unspecified whether middle or intermediate school principal insulin use E11.22 Diabetes mellitus correction insulin use: unspecified correction insulin use status Diabetes mellitus complication status: with kidney complications Diabetes mellitus complication detail: with chronic kidney disease Chronic kidney disease stage: unspecified stage Chronic kidney disease, unspecified CKD stage N18.9 Chronic kidney disease stage: unspecified stage Seasonal allergic rhinitis, unspecified trigger J30.2 Allergic rhinitis trigger: unspecified Allergic rhinitis seasonality: seasonal Hypertension, unspecified type I10 Hypertension type: unspecified Vitamin D deficiency E55.9 Gait instability R26.81 Time Spent (min) 40 Assessment & Plan Assessment & Plan (1) High cholesterol: Code(s): E78.00 - Pure hypercholesterolemia, unspecified Category: Medical Plan: - The patient is nonadherent with statin therapy due to fear of side effects. - After discussion, she agreed to try a non-statin alternative, ezetimibe. - A prescription for ezetimibe will be provided. (2) Type 2 diabetes mellitus: Code(s): E11.9 - Type 2 diabetes mellitus without complications Category: Medical Qualifiers: Diabetes mellitus middle or intermediate school principal insulin use: unspecified correction insulin use status Diabetes mellitus complication status: with kidney complications Diabetes mellitus complication detail: with chronic kidney disease Chronic kidney disease stage: unspecified stage Qualified Code(s): E11.22 - Type 2 diabetes mellitus with diabetic chronic kidney disease Plan: - The patient has stopped taking her insulin and does not have a functional blood glucose monitor. - She continues to take Ozempic. - She has an upcoming appointment with her loan manager in four days and was advised to discuss her insulin regimen and need for a new monitor at that time. - Podiatry and ophtalmology referral will be discussed next visit. (3) CKD (chronic kidney disease): Code(s): N18.9 - Chronic kidney disease, unspecified Category: Medical Qualifiers: Chronic kidney disease stage: unspecified stage Qualified Code(s): N18.9 - Chronic kidney disease, unspecified Plan: Unclear if the patient actually ahs kidney disease or not. A referral to nephrology last visit as she reported she had CKD 3. Recent labs showed normal kidney function. Further nephrology W-U is pending for confirmation of kidney disease. Patient will continue to follow-up with nephrology until final diagnosis is made. (4) Allergic rhinitis: Code(s): J30.9 - Allergic rhinitis, unspecified Category: Medical Qualifiers: Allergic rhinitis trigger: unspecified Allergic rhinitis seasonality: seasonal Qualified Code(s): J30.2 - Other seasonal allergic rhinitis Plan: - The patient reports a recurrence of severe allergy symptoms during winter. - The patient reports she was previously on Singulair and Claritin. - The patient stopped the medicaitons recently. - The plan is to try Claritin 10 mg daily alone to see if it is sufficient to control her symptoms. - If symptoms persist, prescribing Singulair or referring to a manager psychology will be considered. - A follow-up visit is scheduled in two months to assess her response to treatment. (5) HTN (hypertension): Code(s): I10 - Essential (primary) hypertension Category: Medical Qualifiers: Hypertension type: unspecified Qualified Code(s): I10 - Essential (primary) hypertension Plan: - The patient's blood pressure is elevated at 144/60 mmHg, with a history of other high readings. - Given her comorbid diabetes, it is recommended to start Lisinopril. - Lisinopril will be prescribed due to its kidney-protective benefits in patients with diabetes. - The patient has agreed to try this medication. (6) Vitamin D deficiency: Code(s): E55.9 - Vitamin D deficiency, unspecified Category: Medical Plan: - The patient agreed to restart vitamin D supplementation. (7) Gait instability: Code(s): R26.81 - Unsteadiness on feet Category: Medical Plan: - The patient uses a walker for back pain but reports the current device is unsafe and has caused multiple falls. - She was instructed to provide the clinic with the name of the desired walker with rubber wheels so a prescription can be written to obtain a safer device. Plan I had a detailed discussion with the patient about her multiple chronic health issues and medication management. For her severe allergies, we will start with Claritin alone and reassess the need for Singulair in two months. I explained the significant risks of untreated high blood pressure, especially given her diabetes, and recommended starting lisinopril for its dual benefit of blood pressure control and kidney protection, to which she agreed. We also discussed her reluctance to take statins for her high cholesterol; I explained the long-term benefits and safety profile of statins but respected her decision. As an alternative, we agreed she would try ezetimibe. I advised her to discuss her insulin nonadherence and lack of a blood sugar monitor with her loan manager at her upcoming appointment. I acknowledged her concerns about her current walker being a fall hazard and agreed to assist in obtaining a new, safer one upon receiving details from her. We agreed on a two- month follow-up to monitor her progress and tolerance of Claritin. Time spent: 40 minutes on extensive discussion regarding non adherence to medicaitons, reviewing the paitent's chart and writing the note. Medications: New loratadine (Claritin) 10 mg PO DAILY PRN 60 tabs 3RF allergy symptoms lisinopril 5 mg PO DAILY 30 tabs 3RF ezetimibe 10 mg PO DAILY 30 tabs 3RF
== END 2025-06-27 10:21 | disposition home or self-care (01) ==
LOC: HO.HMCH 09:34
PROVIDERS: PCP Internal Medicine; Visit Provider Internal Medicine
DX: I12.9 Hypertensive chronic kidney disease with stage 1 through stage 4 chronic kidney disease, or unspecified chronic kidney disease (principal); E11.22 Type 2 diabetes mellitus with diabetic chronic kidney disease; N18.9 Chronic kidney disease, unspecified; E78.00 Pure hypercholesterolemia, unspecified; J30.2 Other seasonal allergic rhinitis; E55.9 Vitamin D deficiency, unspecified; R26.81 Unsteadiness on feet

== ENCOUNTER → 2025-06-27 09:33 | Outpatient (BNVA) | payer OTHER, SELFPAY | PROVIDERS: PCP Internal Medicine; Visit Provider Internal Medicine | DX: E11.22 Type 2 diabetes mellitus with diabetic chronic kidney disease (principal); I12.9 Hypertensive chronic kidney disease with stage 1 through stage 4 chronic kidney disease, or unspecified chronic kidney disease; N18.9 Chronic kidney disease, unspecified; E78.00 Pure hypercholesterolemia, unspecified; J30.2 Other seasonal allergic rhinitis; E55.9 Vitamin D deficiency, unspecified; R26.81 Unsteadiness on feet | CPT/HCPCS: 99212 ==

== ENCOUNTER 2025-07-01 10:09 | Outpatient (AMB) | payer OTHER, SELFPAY ==
--- NOTE | 2025-07-01 10:33 | MHC.AMNUTRGE ---
VS Expanded 07/01/25 10:34 07/01/25 10:47 Height 5 ft 5 ft Weight 179 lb 179 lb BMI 35.0 35.0 Intake Visit Reasons: Type 2 diabetes mellitus with diabetic chronic kid Allergies clindamycin Allergy (Mild, Verified 06/27/25 09:38) Stomach Upset Latex, Natural Rubber Allergy (Mild, Verified 06/27/25 09:38) Hives methadone Allergy (Mild, Verified 06/27/25 09:38) Hives Opioids - Morphine Analogues Allergy (Mild, Verified 06/27/25 09:38) Hives Nutrition Presentation Details: Pt presents for MNT for T2DM Patient reports lacking meal routine, often cooking for herself and son and acknowledges increased intake empty calorie foods and mind less eating food frequency fish :0-1/d fruits: 0-1/d vex/wk dairy: 2/d Physical activity: Sedentary Alcohol smoking:- BS Monitoring Most Recent Diabetes Results: Cholesterol, (<200) 209 mg/dL H 06/18/25 HDL Cholesterol, (>40) 50 mg/dL 06/18/25 Triglycerides, (<150) 86 mg/dL 06/18/25 Creatinine, (0.5-1.4) 0.83 mg/dL 06/18/25 BUN, (9-16) 10 mg/dL 06/18/25 Sodium, (135-145) 138 mmol/L 06/18/25 Potassium, (3.3-5.1) 4.0 mmol/L 06/18/25 Chloride, (96-108) 109 mmol/L H 06/18/25 Carbon Dioxide, (22-29) 23 mmol/L 06/18/25 Calcium, (8.4-10.2) 9.3 mg/dL Δ 06/18/25 AST, (5-31) 32 U/L H 06/18/25 ALT, (0-31) 33 U/L H 06/18/25 Total Protein, (6.5-8.0) 7.2 g/dL 06/18/25 Albumin, (3.5-5.0) 4.1 g/dL 06/18/25 DOW-Ppuwgrp-Vy.Jeor Equation Height: 5 ft Weight: 179 lb Resting Metabolic Rate: 1277.90 Calculated Activity Level: Sedentary Calories Needed to Maintain Weight: 1533.48 Diagnosis Nutrition problem #1: food nutri know defi As related to (etiology) #1: lack of nutrit education As evidenced by (sign/symptom) #1: knowledge deficit of diet PFSH Surgical History Hx of section Family History Mother Diabetes Father Diabetes Heart attack Son No problems noted. Son No problems noted. Social History Alcohol intake: never Patient Tobacco Use Status: Former Tobacco user e-Cigarette/Vaping Use: Never Used Current occupational status: disabled Cognitive needs: Yes Hearing needs: No Vision needs: Yes Assessment & Plan Assessment & Plan (1) Type 2 diabetes mellitus: Code(s): E11.9 - Type 2 diabetes mellitus without complications Category: Medical Qualifiers: Chronic kidney disease stage: unspecified stage Diabetes mellitus complication detail: with chronic kidney disease Diabetes mellitus complication status: with kidney complications Diabetes mellitus extermination inspector insulin use: unspecified senior living insulin use status Qualified Code(s): E11.22 - Type 2 diabetes mellitus with diabetic chronic kidney disease Plan: current wt: 81 kg (07/17 ) est kcal needs as per MSJ: 1530 est protein needs as per 1 g/kg BW: 80 est fluid needs as per 30 ml/kg BW: 2400 Recommended fiber > 12 g /day and gradually increase up to 25-28 g /day or as tolerated Nutrition topics discussed : Reviewed (R), Pt verbalized understanding (V) , not applicable (N/A) R, : Healthy Plate Method Concept: R, : Carbohydrates: food sources of carbohydrates, relationship of carbohydrates to blood glucose, fatty liver GI health. Recommended total amount of carbohydrates per meals and snack. Differences between simple carbohydrates and complex carbohydrates R, V, N/A: Lean protein foods including vegan , vegetarian sources of protein. Benefits of protein (including but not limited to healing, nutritional value , benefits in weight loss, glucose control R, V, N/A: Fats : Source of fats, benefits of fats. Difference between saturated and unsaturated fats. Saturated fats and its contribution to inflammation R, V, N/A: Fiber: food sources and role of fiber in the diet (including but not limited to its role as a prebiotic, benefits in constipation, role in IBS , role in glucose control and cholesterol level) R, V, N/A: Hydration: role of hydration and prevention of dehydration or over hydration. Foods and water content. R, V, N/A: Vitamins and Minerals in foods and supplements R, V, N/A: Interpreting food labels, including serving size, macronutrients, vitamins, minerals, allergens, ingredient list , % daily value Patient Instructions: Work on having 3 meals per day routine, follow healthy plate method it See meal ideas consisting 1600 calories per day Coding Level of Care Code Nutr Indiv Intake (92359) Diagnoses Type 2 diabetes mellitus with diabetic chronic kidney disease, unspecified CKD stage, unspecified whether extermination inspector insulin use E11.22 Chronic kidney disease stage: unspecified stage Diabetes mellitus complication detail: with chronic kidney disease Diabetes mellitus complication status: with kidney complications Diabetes mellitus extermination inspector insulin use: unspecified extermination inspector insulin use status Time Spent (min) 30
[2025-07-01 10:34] VITALS: BMI 35.0
[2025-07-07 12:43] VITALS: BMI 35.0
== END 2025-07-01 11:28 | disposition home or self-care (01) ==
LOC: HO.ENCR 10:10
PROVIDERS: PCP Internal Medicine; Visit Provider Dietitian, Registered
DX: E11.22 Type 2 diabetes mellitus with diabetic chronic kidney disease (principal)

== ENCOUNTER → 2025-07-01 10:09 | Outpatient (BNVA) | payer OTHER, SELFPAY | PROVIDERS: PCP Internal Medicine; Visit Provider Dietitian, Registered | DX: E11.22 Type 2 diabetes mellitus with diabetic chronic kidney disease (principal); N18.9 Chronic kidney disease, unspecified; Z71.3 Dietary counseling and surveillance | CPT/HCPCS: 97802 ==

== ENCOUNTER 2025-07-08 14:40 | Outpatient (AMB) | payer OTHER, SELFPAY ==
--- NOTE | 2025-07-08 14:44 | HO.NEPHOV ---
Vital Signs 07/08/25 14:45 Height 5 ft Weight 178 lb BMI 34.8 BP 140/66 H Blood Pressure Location Rt brachial Position Sitting Intake Visit Reasons: 3wk f/u w/labs- FULL Controller Coal Or Ore Required: No Accompanied by: Self / Same As Patient Allergies clindamycin Allergy (Mild, Verified 07/08/25 14:46) Stomach Upset Latex, Natural Rubber Allergy (Mild, Verified 07/08/25 14:46) Hives methadone Allergy (Mild, Verified 07/08/25 14:46) Hives Opioids - Morphine Analogues Allergy (Mild, Verified 07/08/25 14:46) Hives Medication List - Last Reconciled 07/08/25 by Fredi Lai MD cholecalciferol (vitamin D3) 50 mcg PO DAILY ezetimibe 10 mg PO DAILY FreeStyle Vin 3 Plus Sensor (blood-glucose sensor) every 15 days NS FreeStyle Vin 3 Lithia (blood-glucose,licensed nurse practitioner,cont) As directed NS insulin aspart U-100 (Novolog FlexPen U-100 Insulin aspart) 1 sliding scale dose subcut USEASDIRECTD lisinopril 5 mg PO DAILY loratadine (Claritin) 10 mg PO DAILY PRN Ozempic (semaglutide) 0.25 mg (0.368 mL) subcut QWEEK NS pen needle, diabetic (Ultra-Fine Pen Needle) As directed HPI Comments Details: The patient is a 64 year old individual presenting for a nephrology consultation for kidney evaluation due to a referral from another doctor. The patient was experiencing lower back pain, which resolved after discontinuing medications. The patient reports having stopped taking multiple prescribed medications on April 23, including insulin, montelukast, loratidine, gabapentin, and vitamin D, due to feeling unwell and wanting to start a new slate. While on these medications, the patient experienced nightly swelling in the right leg and an episode of paralysis on October 08, during which the patient was unable to move after lying down. The patient continues to take Ozempic for diabetes. Since discontinuing the medications, the patient reports feeling significantly better, with improved mood and decreased anxiety. Prior to this, the patient felt a loss of hope and experienced weight gain up to 205 lbs, which the patient attributes to comfort eating. The patient is now losing weight slowly and naturally. The patient has implemented lifestyle changes, including walking two times a week and participating in mamadou chi for 30 minutes daily. Dietary modifications include avoiding sugar, limiting salt intake, and eating more vegetables, avocados, and sauerkraut. Past surgical history includes two C-sections. The patient denies smoking or alcohol use. The patient is retired. 07/08/25 The patient is a 65-year-old female presenting for evaluation of chronic kidney disease. She became concerned after observing her condition progress from stage 1 to stage 2, and subsequently to stage 3 on her medical chart, which prompted her to seek a nephrology consultation. Her medical history is significant for hypertension, for which she takes lisinopril 5 mg. She also has a history of diabetes, and her primary care physician has advised her to drink a liter of water daily. Results - Labs: Recent blood work shows normal kidney function. - Urinalysis: Results were clear, with no proteinuria or hematuria noted. [facility] Surgical History Hx of section Family History Mother Diabetes Father Diabetes Heart attack Son No problems noted. Son No problems noted. Social History Alcohol intake: never Patient Tobacco Use Status: Former Tobacco user e-Cigarette/Vaping Use: Never Used Current occupational status: disabled Cognitive needs: Yes Hearing needs: No Vision needs: Yes Physical Exam Exam Exam: Physical Exam General: Awake. Comfortable. HENT: Neck supple. Mucosa moist. Pulmonary: Lungs aeration equal. No rales. Cardiology: Heart S1-S2 heard. No gallop. Abdomen: Soft. Non tender. Bowel sounds normal. Neurologic: No involuntary movements. No myoclonus. Extremities: No edema. No rash. Vital Signs: Last Vital Signs BP 140/66 H 07/08/25 14:45 BMI result Body Mass Index 34.8 Results Reviewed Nephrology Results: Hgb, (12.0-16.0) 12.3 g/dl 06/18/25 WBC, (4.8-10.8) 8.1 X10*3/uL 06/18/25 Plt Count, (160-400) 312 X10*3/uL 06/18/25 Sodium, (135-145) 138 mmol/L 06/18/25 Potassium, (3.3-5.1) 4.0 mmol/L 06/18/25 Chloride, (96-108) 109 mmol/L H 06/18/25 Carbon Dioxide, (22-29) 23 mmol/L 06/18/25 BUN, (9-16) 10 mg/dL 06/18/25 Creatinine, (0.5-1.4) 0.83 mg/dL 06/18/25 Calcium, (8.4-10.2) 9.3 mg/dL Δ 06/18/25 Urine Protein, (Neg-Trace) Negative mg/dL 06/18/25 Urine Creatinine 73.40 mg/dL 06/18/25 Assessment & Plan Assessment & Plan (1) Type 2 diabetes mellitus: Code(s): E11.9 - Type 2 diabetes mellitus without complications Category: Medical Qualifiers: Chronic kidney disease stage: unspecified stage Diabetes mellitus complication detail: with chronic kidney disease Diabetes mellitus complication status: with kidney complications Diabetes mellitus terminal make up operator insulin use: unspecified terminal make up operator insulin use status Qualified Code(s): E11.22 - Type 2 diabetes mellitus with diabetic chronic kidney disease Plan Plan 1. Hypertension - The patient's blood pressure was noted to be high during the visit. - The dosage of lisinopril will be increased from 5 mg to 10 mg to improve blood pressure control. 2. Chronic Kidney Disease - The patient presented with concerns about progressing CKD based on her medical chart. - Recent lab results, including normal kidney function and a clear urinalysis, show no evidence of kidney problems at this time. - The patient was reassured that she does not have stage 3 CKD or any other stage of kidney disease. - She was advised to continue with adequate fluid intake and was counseled on the importance of maintaining good blood sugar control to prevent future kidney damage. - The patient's primary care provider will be informed of these findings and will continue to manage her care. - No follow-up with nephrology is required at this time unless new issues arise. Medications: Changed From lisinopril 5 mg PO DAILY 30 tabs 3RF To lisinopril 10 mg PO DAILY 90 tabs 3RF Coding Level of Care Code Est Pt Level 3 (85166) Diagnoses Type 2 diabetes mellitus with diabetic chronic kidney disease, unspecified CKD stage, unspecified whether nursing home insulin use E11.22 Chronic kidney disease stage: unspecified stage Diabetes mellitus complication detail: with chronic kidney disease Diabetes mellitus complication status: with kidney complications Diabetes mellitus terminal make up operator insulin use: unspecified terminal make up operator insulin use status
[2025-07-08 14:45] VITALS: BP 140/66; BMI 34.8
--- OUTSIDE RECORDS SUMMARY | 2025-07-08 18:55 | XMS_ITS | Clinical Summary ---
Author Organization [address] Address [address] [place] [phone] Phone Care Team Providers Care [id number] Armor Crewman Name Role Phone Frank Hernandez MD Primary Care Provider [phone] Allergies Active Allergy Reactions Criticality Noted Date Comments Peogzhvursui-Qpa-Emhtuhjvwsfdc Hives 02/10 Cephalexin Hives High 01/31/2022 Latex [...] mouth daily. 024 Active ONETOUCH [place] [facility] [place] 1 Stick topically 2 times daily. E11.29 022 Active blood-glucose meter (BLOOD GLUCOSE MONITORING [facility] [place] E11.29 to check glucose upto 2 times a day Active flash glucose scanning reader (FreeStyle Vin 2 [place]) [facility] [place] 1 Device by Does not apply route [...] time each day. 30 each 5 025 Active atorvastatin (LIPITOR) 40 mg tablet [...] unspecified whether stage 3a or 3b CKD (CMS/[facility] V24, CMS/[facility] V28) Inject 12-16 Units into the skin at bedtime.Strength : 100 unit/mL (3 mL) 15 mL 1 Active Additional Information Patient not taking.Reported on 04/23/2025 insulin aspart (NovoLOG Flexpen U-100 Insulin) 100 unit/mL (3 mL) injection penIndications:Ty pe 2 diabetes mellitus with stage 3 chronic kidney disease, with long-term current use of insulin, unspecified whether stage 3a or 3b CKD (CMS/[facility] V24, CMS/[facility] V28) INJECT INTO SKIN 3 TIMES A DAY SLIDING SCALE: <70: 0 UNITS, 71-100: 0 UNITS, 101-150: 6 UNITS, 151-200: 10 UNITS, 201-250: 12 UNITS, 251-300: 14 UNITS, 300-350: 16 UNITS, 351-400: 18 UNITS, >400: 20 UNITS AND CALL ME. 45 mL Active Additional Information Patient not taking.Reported on 04/23/2025 loratadine (CLARITIN) 10 mg tabletIndications :Moderate persistent asthma without complication TAKE 1 TABLET BY MOUTH 1 TIME EACH DAY. 90 tablet 1 025 Active Ozempic 0.25 mg or 0.5 mg (2 mg/3 mL) injection penIndications:Ty pe 2 diabetes mellitus with stage 3 chronic kidney disease, with long-term current use of insulin, unspecified whether stage 3a or 3b CKD ([facility] V24, [facility] V28) INJECT 0.25 MG SUBCUTANEOUSLY EVERY 7 DAYS 3 mL 5 025 Active flash glucose sensor (FreeStyle Vin 2 Sensor) kitIndications:Ty pe 2 diabetes mellitus with stage 3 chronic kidney disease, with long-term current use of insulin, unspecified whether stage 3a or 3b CKD ([facility] V24, [facility] V28) Use to monitor your blood [...] unspecified whether stage 3a or 3b CKD ([facility] V24, [facility] V28) Use to monitor your blood sugars 6 EA 1 025 2024 Discontinued Active Problems Problem Noted Date Diagnosed Date DM (diabetes mellitus), type 2 with renal compli cations 05/14/2021 Nuclear sclerosis of both eyes 12/29/2016 Retinal drusen of both eyes 12/29/2016 Chronic back pain 03/10/2016 Diabetic neuropathy associat ed with type 2 diabetes mellitus 03/10/2016 Microalbuminuria 03/10/2016 Anatomical narrow angle 11/23/2015 Cataracts, bilateral 11/23/2015 COPD (chronic obstructive pulmonary disease) Type 2 diabetes mellitus with ophthalmic manifes tations 09/28/2013 Hypothyroidism 09/23/2011 Hyperlipidemia 07/22/2010 Asthma 02/10/2009 RSD (reflex sympathetic dystrophy) 02/10/2009 Seasonal allergies 02/10/2009 Encounters Date Type Department Care Team Description 06/20/2025 Telephone Endocrinology - [address] [phone] Kai Seay [place] 06/16/2025 Telephone Endocrinology - [address] [phone] Antonette Rincon PA 05/22/2025 Telephone Internal Medicine - [facility] [address] [place], [place] [address], [place] [phone] Frank Hernandez MD 05/19/2025 Telephone [facility] [phone] Frank Hernandez MD 05/14/2025 Telephone Internal Medicine - [address] [phone] Frank Hernandez MD 04/24/2025 Results Follow-Up [address] [phone] Akash Soriano MD 04/23/2025 9:30 AM EDT Office Visit [address] [phone] Akash Soriano MD Type 2 diabetes mellitus with stage 3 chronic kidney disease, with long-term current use of insulin, unspecified whether stage 3a or 3b CKD ([facility] [place], [facility] V28) (Primary Dx) 04/08/2025 Telephone Internal Medicine - [address] [phone] Frank Hernandez MD from Last 3 Months Immunizations Immunization Administration Dates Next Due Pneumococcal polysaccharide 23 valent (Pneumovax 23) 2yo and older 12/27/2013 Td Tetanus diptheria (Tdvax) 7yo and older 03/02,02/10/2009 Surgical History Surgery Date Site/Laterality Comments SECTION PROCEDURE: MD DELIVERY ONLY; COMMENT: x2 COLONOSCOPY 03/17/2011 PROCEDURE: HISTORICAL COLONOSCOPY; COMMENT: normal; repeat in ten yrs Medical History Medical History Date Comments Hypothyroidism 09/23/2011 DX:Hypothyroidis m COPD (chronic obstructive pu lmonary disease) ([facility], [facility] V28) 11/12/2013 DX:COPD (chronic o bstructive pulmonary disease) ([facility]) Microalbuminuria 03/10/2016 DX:Microalbumin uria Type 2 diabetes mellitus wit h ophthalmic manifestations ([facility] [place]24, [facility] V28) 09/28/2013 DX:Type 2 diabetes mellitus with [...] 07/30/2025 8:45 AM EST Office Visit Endocrinology - [place] [address] [place] [phone] Antonette Rincon PA [address] [place] [address] 12/30/2025 8:30 AM EDT Office Visit Pulmonology - [place] [address] [address] [place] [phone] Janna Saezn NP [address] [place] [phone] Health Maintenance Due Date Last [...] 04/23/2026 04/23/2025, 01/28/2025, 10/28/2024, Additional history exists Cholesterol Screening (Lipid Panel) 01/28/2030 01/28/2025, 07/08/2024, [...] stage 3a or 3b CKD (CMS/[facility] V24, CMS/[facility] V28) BUN Routine 04/23/2025 10:28 AM [...] or 3b CKD (CMS/HCC V24, CMS/HCC V28) LIPID PANEL WITH REFLEX TO DIRECT LDL Routine 01/28/2025 1:45 PM EDT Hyperlipidemia, unspecified hyperlipidemia type DIABETES EYE EXAM Routine 12/20/2023 COLONOSCOPY Routine 11/09/2023 URINE ALBUMIN CREATININE RATIO Routine 11/07/2023 SCREENING MAMMOGRAPHY BI 2-VIEW BREAST INC CAD Routine 01/25/2023 8:16 AM EDT Encounter for screening mammogram for malignant neoplasm of breast HEPATITIS C SCREENING Routine 12/27/2013 from Last 3 Months or Most Recently Relevant to Health Maintenance Results * Creatinine (04/23/2025 10:28 AM EDT) Creatinine 0.82 0.50 - 1.10 mg/dL LAB CHEMISTRY METHOD 04/23/2025 4:[address] [facility] eGFR 79 >=60 mL/min/1. 73m2 LAB CHEMISTRY METHOD 04/23/2025 4:[address] [facility] Comment:Calculation based on the Chronic Kidney Disease Epidemiology Collaboration (CKD-EPI) equation refit without adjustment for race. Blood Venous blood specimen / Unknown Venipuncture / Unknown 04/23/2025 10:28 AM EDT 04/23/2025 10:28 AM EDT us Akash Soriano MD LAB BLOOD ORDERABLES Final Resul t [facility] [address] [place] [address], * BUN (04/23/2025 10:28 AM EDT) BUN 10 5 - 25 mg/dL LAB CHEMISTRY METHOD 04/23/2025 4:[address] [facility] Blood Venous blood specimen / Unknown Venipuncture / Unknown 04/23/2025 10:28 AM EDT 04/23/2025 10:28 AM EDT Akash Soriano MD LAB BLOOD ORDERABLES Final Resul t Performing Organization Address [facility] de Phone Number [facility] [address] [place] [address], [place] [phone] * (ABNORMAL) Hemoglobin A1c (04/23/2025 10:28 AM EDT) Hemoglobin A1C 7.5(H) <6.5 % LAB CHEMISTRY METHOD 04/23/2025 10:[address] [facility] Mean Bld Glu Estim. 169 mg/dL LAB CHEMISTRY METHOD 04/23/2025 10:[address] [facility] Blood Venous blood specimen / Unknown Venipuncture / Unknown 04/23/2025 10:28 AM EDT 04/23/2025 10:28 AM EDT Akash Soriano MD LAB BLOOD ORDERABLES Final Resul t Performing Organization Address [facility] de Phone Number [facility] [address] [place] [address], [place] [phone] * (ABNORMAL) Lipid panel with reflex to direct LDL (01/28/2025 1:45 PM EDT) Cholesterol 228(H) 0 - 200 mg/dL LAB CHEMISTRY METHOD 01/28/2025 7:[address] [facility] Triglycerides 126 0 - 150 mg/dL LAB CHEMISTRY METHOD 01/28/2025 7:[address] [facility] HDL 61 >=40 mg/dL LAB CHEMISTRY METHOD 01/28/2025 7:[address] [facility] LDL Calculated 142(H) 0 - 100 mg/dL LAB CHEMISTRY METHOD 01/28/2025 7:[address] [facility] VLDL Cholesterol [place] 25.2 mg/dL LAB CHEMISTRY METHOD 01/28/2025 7:[address] [facility] Non HDL Chol. (LDL+VLDL) 167(H) <145 mg/dL LAB CHEMISTRY METHOD 01/28/2025 7:[address] [facility] Chol/HDL Ratio 3.7 0.0 - 4.4 LAB CHEMISTRY METHOD 01/28/2025 7:[address] [facility] Blood Venous blood specimen / Unknown Venipuncture / Unknown 01/28/2025 1:45 PM EDT 01/28/2025 1:45 PM EDT Frank Hernandez MD LAB BLOOD ORDERABLES Final Res ult [facility] [address] [place] [address], * Diabetes Eye Exam (12/20/2023) [facility] Diabetes: Annual Retina Eye Exam abstracted Historical Provider HEALTH MAINTENANCE Final Result * Colonoscopy (11/09/2023) [facility] Colonoscopy no interpretation , abstracted Anatomical Region Laterality Modality Other Historical Provider HEALTH MAINTENANCE Final Result * Urine Albumin Creatinine Ratio (11/07/2023) [facility] Urine Albumin Creatinine Ratio abstracted Historical Provider [...] IMG XR PROCEDURES Phuong l Result * Hepatitis C Screening (12/27/2013) Hepatitis C Screening abstracted Historical Provider HEALTH MAINTENANCE Final Result from Last 3 Months or Most Recently Relevant to Health Maintenance Insurance [employer] MED[employer]ARE ADVANTAGE MEDICAID - [place] Care Teams [id number] [id number] Armor Crewman Relationship Specialty Start Date End Date Frank Hernandez MD [address] [place] [phone] PCP - General Internal Medicine 01/30/09
== END 2025-07-08 14:55 | disposition home or self-care (01) ==
LOC: HO.HKA 14:40
PROVIDERS: PCP Internal Medicine; Visit Provider Internal Medicine Hypertension Specialist
DX: E11.22 Type 2 diabetes mellitus with diabetic chronic kidney disease (principal)
CPT/HCPCS: 99213

== ENCOUNTER → 2025-07-08 14:40 | Outpatient (BNVA) | payer OTHER, SELFPAY | PROVIDERS: PCP Internal Medicine; Visit Provider Internal Medicine Hypertension Specialist | DX: I12.9 Hypertensive chronic kidney disease with stage 1 through stage 4 chronic kidney disease, or unspecified chronic kidney disease (principal); N18.9 Chronic kidney disease, unspecified; E11.22 Type 2 diabetes mellitus with diabetic chronic kidney disease; Z79.899 Other long term (current) drug therapy; Z79.4 Long term (current) use of insulin; Z87.891 Personal history of nicotine dependence | CPT/HCPCS: 99212 ==